=== PATIENT | female | born 1990 | race Caucasian/White ===

== ENCOUNTER 2021-02-06 10:37 | Emergency (ER) | payer OTHER ==
--- OUTSIDE RECORDS SUMMARY | 2021-02-06 10:41 | XMS REPORT | Continuity of Care Document ---
:1990 Author Organization [facility] t Address [address] [place] [address] Care Team Providers Name Role Phone Daniel RAMIREZ Attending Clinician Doctor Unassigned, Name Attending Clinician Unavailable DR GERALDO Attending Clinician Unavailable ORAEE Attending Clinician Unavailable ORAEE Attending Clinician Unavailable OLYA GARCIA Attending Clinician Unavailable ROB Attending Clinician Unavailable DR GERALDO Admitting Clinician Unavailable ORAEE Admitting Clinician Unavailable ORAEE Admitting Clinician Unavailable OLYA GARCIA Admitting Clinician Unavailable ROB Admitting Clinician Unavailable Problems Condition Condition Condition Status Onset Resolution Last Treating Co mments Source Name Details Category Date Date Treatment Clinician Date Abdominal Abdominal Problem Active 2019-[address] [facility] 0[facility]27 [facility] (LUF/LI V/SA) Sialoadeni Sialoadeni Problem Active [facility] tis tis 6-11 [facility] (LUF/LI V/SA) Problem [facility] (LUF/LI V/SA) Streptococ Streptococ Diagnosis Active 2018-[address] [facility] marlo sore marlo sore 1-04 [facility] - throat throat 00:00: Memoria 00 l (LUF/LI V/SA) Abdominal Abdominal Problem Active [facility] 7[facility]16 [facility] (LUF/LI V/SA) Anemia Anemia Problem [facility] (LUF/LI V/SA) Allergies, Adverse Reactions, Alerts This patient has no known allergies or adverse reactions. Social History Smoking Status Start Date Stop Date Source Never smoker [facility] (LUF/TAMELA/SA) Medications Ordered Filled Start Stop Current Ordering Indication Dosage Frequency Signature Comments Components Source Medication Medication Date Date Medication? Clinician (SIG) Name Name Ferrous Ferrous 2018-06 Yes Danilo [address] Gluconate Gluconate 08-13 Oraee with water [facility] - 00[facility]: or juice Memoria 00 between l meals Outpati ent Clinics CitraNatal CitraNatal Yes Danilo as [facility] DHA DHA 02-22 Oraee directed [facility] l Outpati ent Clinics acetaminoph acetaminoph Yes [address] en 300 MG / en 300 MG / L ukes - codeine codeine Memoria phosphate phosphate l 30 MG Oral 30 MG Oral (DOUGLAS F/LI Tablet Tablet V/SA) cyclobenzap cyclobenzap Yes 10mg 3xD [facility]ine [facility]ine [facility] (LUF/LI V/SA) prednisone prednisone Yes [facility] (LUF/LI V/SA) acetaminoph acetaminoph Yes [address] [facility] en 300 MG / en 300 MG / every 6 [facility] - codeine codeine hours as Memor ia phosphate phosphate needed. l 30 MG Oral 30 MG Oral (as?needed (LUF/LI Tablet Tablet ?for?pain) V/SA) cyclobenzap cyclobenzap Yes 10mg 3xD orally [address] [facility] rine rine times per [facility] - day as Memoria needed. l (for (LUF/LI muscle V/SA) spasms) prednisone prednisone Yes (day 1- [facility] tab, day [facility] - 2- 5 tab, Memoria day 3- 4 l tab, day (LUF/LI 4- 3 tab, V/SA) day 5- 2 tab, day 6- 1 tab) Immunizations Ordered Filled Immunization Date Status Comments [facility] e Immunization Name Name Influenza, Influenza, 2019-08-25 Completed [facility] - injectable, injectable, 23:31:00 [facility] quadrivalent, quadrivalent, (LUF/TAMELA /SA) preservative free preservative free TDAP > 7 TDAP > 7 2019-06-12 Completed [facility] Years-Adacel Years-Adacel 00:00:00 [facility] Outpatient Clinics up to date flu up to date flu 2019-01-02 Completed [facility] - 00:00:00 [facility] (LUF/TAMELA/SA) Vital Signs Vital Name Observation Time Observation Value Comments Source Body Temperature 2020-06-14 11:20:00 98 [degF] [facility] (LUF/TAMELA/SA) Pulse Rate 2020-06-14 11:20:00 78 /min [facility] (LUF/TAMELA/SA) Respiratory Rate 2020-06-14 11:20:00 18 /min [facility] (LUF/TAMELA/SA) O2% BldC Oximetry 2020-06-14 11:20:00 98 % [facility] (LUF/TAMELA/SA) BP Systolic 2020-06-14 11:20:00 105 mm[Hg] [facility] (LUF/TAMELA/SA) BP Diastolic 2020-06-14 11:20:00 94 mm[Hg] [facility] (LUF/TAMELA/SA) Height 2020-06-14 11:20:00 70 [in_i] [facility] (LUF/TAMELA/SA) Weight 2020-06-14 11:20:00 190 [lb_av] [facility] (LUF/TAMELA/SA) BMI (Body Mass Index) 2020-06-14 11:20:00 27.5 kg/m2 [facility] (LUF/TAMELA/SA) Body Temperature 2020-04-16 01:00:00 98.1 [degF] [facility] (LUF/TAMELA/SA) Pulse Rate 2020-04-16 01:00:00 74 /min [facility] (LUF/TAMELA/SA) Respiratory Rate 2020-04-16 01:00:00 16 /min [facility] (LUF/TAMELA/SA) O2% BldC Oximetry 2020-04-16 01:00:00 99 % [facility] (LUF/TAMELA/SA) BP Systolic 2020-04-16 01:00:00 125 mm[Hg] [facility] (LUF/TAMELA/SA) BP Diastolic 2020-04-16 01:00:00 84 mm[Hg] [facility] (LUF/TAMELA/SA) Height 2020-04-15 18:11:00 71 [in_i] [facility] (LUF/TAMELA/SA) Weight 2020-04-15 18:11:00 88 kg [facility] (LUF/TAMELA/SA) BMI (Body Mass Index) 2020-04-15 18:11:00 27.1 kg/m2 [facility] (LUF/TAMELA/SA) Body Temperature 2019-11-30 09:49:00 98 [degF] [facility] (LUF/TAMELA/SA) Pulse Rate 2019-11-30 09:49:00 78 /min [facility] (LUF/TAMELA/SA) Respiratory Rate 2019-11-30 09:49:00 18 /min [facility] (LUF/TAMELA/SA) O2% BldC Oximetry 2019-11-30 09:49:00 100 % [facility] (LUF/TAMELA/SA) BP Systolic 2019-11-30 09:49:00 160 mm[Hg] [facility] (LUF/TAMELA/SA) BP Diastolic 2019-11-30 09:49:00 96 mm[Hg] [facility] (LUF/TAMELA/SA) Height 2019-11-30 09:49:00 71 [in_i] [facility] (LUF/TAMELA/SA) Weight 2019-11-30 09:49:00 180 [lb_av] [facility] (LUF/TAMELA/SA) BMI (Body Mass Index) 2019-11-30 09:49:00 25.1 kg/m2 [facility] (LUF/TAMELA/SA) Body Temperature 2019-08-27 08:45:00 97.5 [degF] [facility] (LUF/TAMELA/SA) Pulse Rate 2019-08-27 08:45:00 81 /min [facility] (LUF/TAMELA/SA) Respiratory Rate 2019-08-27 08:45:00 18 /min [facility] (LUF/TAMELA/SA) O2% BldC Oximetry 2019-08-27 08:45:00 97 % [facility] (LUF/TAMELA/SA) BP Systolic 2019-08-27 08:45:00 119 mm[Hg] [facility] (LUF/TAMELA/SA) BP Diastolic 2019-08-27 08:45:00 74 mm[Hg] [facility] (LUF/TAMELA/SA) Height 2019-08-24 10:24:00 71 [in_i] [facility] (F/TAMELA/SA) Weight 2019-08-24 10:24:00 228 [lb_av] [facility] (LUF/TAMELA/SA) BMI (Body Mass Index) 2019-08-24 10:24:00 31.9 kg/m2 [facility] (F/TAMELA/SA) Procedures Procedure Date / Time Performed Performing Clinician [facility] e SECTION WITH 2019-08-25 12:39:00 [facility] BILATERAL TUBAL [facility] (Bilateral) (F/TAMELA/SA) EXTRACTION POC LOW OPEN 2019-08-25 00:00:00 [facility] (LUF/TAMELA/SA) OCCL BILAT FALLOP TUBES 2019-08-25 00:00:00 [facility] EL DEV OPEN [facility] (LUF/TAMELA/SA) section [facility] (F/TAMELA/SA) Encounters Start End Encounter Admission Attending Care Care Encounter Source Date/Time Date/Time Type Type Clinicians Facility Department ID 2021-02-05 2021-02-05 Emergency Sanchez, [facility] [id number] 04:06:00 07:29:00 Venkat Robert [id number] Joe [id number] [place] [id number] 2021-02-05 2021-02-05 Orders Doctor WYNN [id number] 00:00:00 00:00:00 Only UnassSIMÓN umanzor [id number] [facility] [id number] 2020-06-14 2020-06-14 SPRAIN 1 GERALDO, [facility] [id number] [facility] 10:58:00 13:00:00 LIGAMENTS KIRSTY [facility] [place] [facility] - LUMBAR SPN N, [address] BYPASS, (LUF/[place] [address] 2020-06-14 2020-06-14 Inpatient [facility] [id number] [facility] 00:00:00 [facility] [place] [id number] [facility] - N, [id number] [id number] l BYPASS, (LUF/[place] [address] 2020-06-14 2020-06-14 Inpatient [facility] [id number] 00:00:00 00:00:00 [facility] [place] [id number] [facility] - N, [id number] BYPASS, (LUF/[place] [address] 2020-05-24 2020-05-24 Outpatient STLMLC STLMLC [id number] [facility] 2020-04-15 2020-04-16 RIGHT E [facility] [id number] [facility] 17:48[facility]00 01[facility]22[facility]00 [facility] - QUADRANT N, [address] [place], (LUF/[place] [address] 2019-11-30 2019-11-30 SIALOADENI [facility] [id number] 09:37:00 10:35:00 TIS SHEY HAWLEY L ukes - UNSPECIFIE N, [address] BYPASS, (LUF/[place] [address] 2019-08-25 2019-08-27 MAT CARE O ARCADIO, [facility] [id number] 07:58:00 13:10:00 [facility] - SCAR PREV N, [address] [place], (LUF/[place] [address] 2019-08-25 2019-08-25 Inpatient [facility] [place] [id number] [facility] 14:31:00 23:59:00 [facility] [address] (LUF/[address], V/SA) [place] [address] 2019-08-25 2019-08-25 Outpatient [facility] [id number] 08:30:00 08:30:[address] [facility] IP l IP Outpati ent Clinics 2019-08-23 2019-08-23 Outpatient [facility] [id number] 13:00:00 13:00:00 Clinics [facility] oria n [facility] Clinics 2019-08-22 2019-08-22 Outpatient [facility] [id number] 14:30:00 14:30:00 Clinics [facility] oria n [facility] 2019-08-17 2019-08-17 Outpatient [facility] [id number] 13:10:00 13:10:00 Clinics [facility] oria n [facility] Clinics 2019-08-10 2019-08-10 Outpatient [facility] [id number] 13:00:00 13:00:00 Clinics [facility] oria n [facility] Clinics 2019-08-03 2019-08-03 Outpatient [facility] [id number] 15:10:00 15:10:00 Clinics [facility] oria n [facility] Clinics 2019-08-03 2019-08-03 Outpatient [facility] [id number] 13:51:00 13:51:00 Clinics Clinics [facility] Health I Health I l Outpati ent Clinics 2019-07-27 2019-07-27 Outpatient [facility] [id number] 13:00:00 13:00:00 Clinics [facility] oria n Multispec[facility] l [facility]pec [facility] Clinics 2019-07-10 2019-07-10 Outpatient [facility] [id number] 13:15:00 13:15:00 Clinics Clinics [facility] oria n Multispecia l Multispec [facility]ty Center [facility] Clinics 2019-07-05 2019-07-05 Outpatient [facility] [id number] 10:45:00 10:45:00 Clinics Clinics [facility] Health I l Outpati ent Clinics 2019-06-26 2019-06-26 Outpatient [facility] [id number] 13:20:00 13:20:00 Clinics [facility] oria n Multispecia l Multispec [facility]ty Center [facility] Clinics 2019-06-12 2019-06-12 Outpatient [facility] [id number] 13:00:00 13:00:00 Clinics Clinics [facility] oria n Mult[facility]pecia [facility] Clinics 2019-05-16 2019-05-16 Outpatient [facility] [id number] 13:00:00 13:00:00 Clinics Clinics [facility] oria n Mult[facility]pec[facility] l [facility] Clinics 2019-05-09 2019-05-09 Outpatient [facility] [id number] 10:08:00 10:08:00 Clinics Clinics [facility] I Health I l Outpati ent Clinics 2019-04-24 2019-04-24 Outpatient [facility] [id number] 14:21:00 14:21:00 Clinics Clinics [facility] oria n Multispecia l Multispec [facility]ty Center Out [facility] Clinics 2019-04-24 2019-04-24 Outpatient [facility] [id number] 10:34:00 10:34:00 Clinics Clinics [facility] Health I l Outpati ent Clinics 2019-04-18 2019-04-18 Outpatient [facility] [id number] 13:00:00 13:00:00 Clinics [facility] oria n Multispecia l Multispec lty Center Out [facility] Clinics 2019-03-21 2019-03-21 [facility] [id number] 13:30:00 13:30:00 Clinics [facility] oria n Multispecia l Multispec [facility]ty Center Out [facility] Clinics 2019-02-22 2019-02-22 Outpatient [facility] [id number] 11:13:00 11:13:00 Clinics [facility] Health I l Outpati ent Clinics 2019-02-21 2019-02-21 [facility] [id number] 13:30:00 13:30:00 Clinics [facility] oria n Multispecia l [facility]pec [facility]ty Center Out [facility] 2019-02-13 2019-02-13 [facility] [id number] 09:52:00 09:52:00 Clinics Clinics [facility] oria n Multispecia l Multispec [facility]ty Center Out [facility] Clinics 2019-02-07 2019-02-07 [facility] [id number] 13:30:00 13:30:00 Clinics [facility] oria n Multispecia l [facility]pec [facility]ty Center [facility] Clinics Results Test Description Test Time Test Comments Results Result Sourc e Comments CT T SPINE W/O 2020-06-14 CONTRAST 12:36:[address] [facility] [facility] (F/TAMELA/SA)Name: NIRAV DAMIEN WEIR : [id number] Sex: F Histo ry: TraumaComparison studies:NoneTechnique: Axial were obtained through the thoracic and lumbar regions.Coronal and sagittal images reconstructed from the axial data.Intravenous contrast: NoneFindings:Alignment : Normal thoracic kyphosis. Normal lumbar lordosis.. No scoliosis.Soft tissues: No abnormalities..Paraspi nal muscles: Well-preserved.Spinal cord: Cannot evaluate.Vertebrae:Bon es mildly demineralized but normal in height.No fractures, infection or neoplasm.Thoracic degenerative changes:Minimally degenerated discs in the midthoracic region.Patent spinal canal and foramina.Lumbar degenerative changes:None.Incidenta l bilateral tubal ligation clips in the pelvis.IMPRESSION:1. No acute thoracic or lumbar abnormalities.2. Specifically, no fractures or subluxations.3. Cannot adequately evaluate the spinal cord, ligament or the vessels on thesestudies.This final report was electronically signed by Dr Tommy Escobar MD06/14/2020 12:29 PMDictated By: CHRIS ESCOBARate: 06/14/2020 12:29 CT L SPINE W/O 2020-06-14 CONTRAST 12:36:09 [facility] (LUF/[facility]/SA)Name: DAMIEN PEREIRA : [id number] Sex: F Histo ry: TraumaComparison studies:NoneTechnique: Axial were obtained through the thoracic and lumbar regions.Coronal and sagittal images reconstructed from the axial data.Intravenous contrast: NoneFindings:Alignment : Normal thoracic kyphosis. Normal lumbar lordosis.. No scoliosis.Soft tissues: No abnormalities..Paraspi nal muscles: Well-preserved.Spinal cord: Cannot evaluate.Vertebrae:Bon es mildly demineralized but normal in height.No fractures, infection or neoplasm.Thoracic degenerative changes:Minimally degenerated discs in the midthoracic region.Patent spinal canal and foramina.Lumbar degenerative changes:None.Incidenta l bilateral tubal ligation clips in the pelvis.IMPRESSION:1. No acute thoracic or lumbar abnormalities.2. Specifically, no fractures or subluxations.3. Cannot adequately evaluate the spinal cord, ligament or the vessels on thesestudies.This final report was electronically signed by Dr Tommy Escobar MD06/14/2020 12:29 PMDictated By: BELLA ESCOBARRODate: 06/14/2020 12:29 CT ABDOMEN/PELVIS 2020-04-16 W/CONTRAST 00:50:57 [facility] ([facility]/)Name: DAMIEN PEREIRA : [id number] Sex: F EXAM: CT Abdomen and Pelvis WITH contrastINDICATION: [id number]: Abdominal painCOMPARISON: None.TECHNIQUE: Abdomen and pelvis were scanned utilizing a multidetector helicalscanner from the lung base to the pubic symphysis after administration of IVcontrast. Coronal and sagittal reformations were obtained. Routine protocol wasperformed.IV CONTRAST: 100 mL of Isovue 300ORAL CONTRAST: NoneCOMPLICATIONS: NoneFINDINGS:LINES and TUBES: None.LOWER THORAX: UnremarkableHEPATOBILI JEANETTE: No focal hepatic lesions. No biliary ductal dilation.GALLBLADDER: No radio-opaque stones or sludge. No wall thickening.SPLEEN: No splenomegaly.PANCREAS: No focal masses or ductal dilatation.ADRENALS: No adrenal nodulesKIDNEYS/URETERS : Kidneys enhance symmetrically. No hydronephrosis. No cystic orsolid mass lesions. No stones.GI TRACT: No abnormal distention, wall thickening, or evidence of bowelobstruction. The cecum is located in the midline lower abdomen. Appendix isnot clearly identified. There is however no fat stranding or adenopathy tosuggest appendicitis.PELVIC ORGANS/BLADDER: Tubal ligation clips.LYMPH NODES: No lymphadenopathy.VESSEL S: Unremarkable.PERITONEU M / RETROPERITONEUM: No free air or fluid.BONES: Unremarkable.SOFT TISSUES: Unremarkable.IMPRESSIO N:No acute abdominopelvic process.This final report was electronically signed by Dr Danay Ly 04/16/2020 12:44AMDictated By: DANAY LYDate: 04/16/2020 00:44 URINALYSIS WITH MICROSCOPIC 2020-04-16 00:22:00 Test Item Value Reference Range Interpretation Comme nts Color (test code = UCOLR) Yellow Clarity (test code = UCLAR) Clear Glucose (test code = UGLUC) NEGATIVE NEGATIVE N Bilirubin (test code = UBILI) NEGATIVE NEGATIVE N Ketones (test code = UKET) NEGATIVE NEGATIVE N Specific [place] (test code = USPGR) 1.020 1.005-1.030 A Blood (test code = UBLD) NEGATIVE NEGATIVE N PH (test code = UPH) 6.0 4.5-8.0 A Protein (test code = UPROT) NEGATIVE NEGATIVE N Urobilinogen (test code = U UROB) 0.2 >0.2 N Nitrite (test code = UNITR) NEGATIVE NEGATIVE N Leukocyte Esterase (test code = ULEUK) SMALL NEGATIVE A WBC (test code = WBCUR) 10-15 0-5 A RBC (test code = RBCUR) None Seen 0-5 A Epithial Cells (test code = U EPI) 3-5 0-10 A Mucous (test code = UMUC) Trace None Seen A Bacteria (test code = UBACT) 1+ None Seen,Trace A TEST, Urine [id number] 00:14:00 Test Item Value Reference Range Interpretation Comments (Urine) (test code = Negative PREGU) TEST, Serum [id number] 22:57:00 Test Item Value Reference Range Interpretation Comments (Serum) (test code = Negative Negative N PREGS) [id number] 21:25:00 Test Item Value Reference Range Interpretation Comments Glucose (test code 83 mg/dl 75-110 = GLU) BUN (test code = 12.0 mg/dl 6.0-17.0 BUN) Creatinine (test 0.9 mg/dl 0.4-1.2 code = CREA) Sodium (test code = 139 mmol/l 137-145 NA) Potassium (test 4.0 mmol/l 3.5-5.0 code = K) Chloride (test code 107 mmol/l 98-107 = CL) CO2 (test code = 28 mmol/l 22-30 CO2) Calcium (test code 8.4 mg/dl 8.4-10.2 = CALC) T Protein (test 7.4 gm/dl 5.1-8.7 code = TP) Albumin (test code 3.7 gm/dl 3.5-4.6 = ALB) A/G Ratio (test 1.0 % 1.1-2.2 L code = AGRAT) AST (SGOT) (test 5 U/L 11-36 L code = AST) ALT (SGPT) (test 15 U/L 11-40 code = ALT) Alkaline Phos (test 57 U/L 47-114 code = ALKP) Total Bilirubin 0.3 mg/dl 0.2-1.2 (test code = TBIL) Globulin (test code 3.7 gm/dl 2.3-3.5 H = GLOBU) Calcium, Corrected 8.6 mg/dl 8.4-10.2 Various f ormulas exist (test code = for corrected s gerald CALCCORR) calcium results , each yielding differ ent values. This corrected resul t was based on the fo rmula: Corrected Calci um = SerumCalcium + [0.8 * ( 4 - SerumAlbu min)] EGFR if >60 Bahamian (test code mL/min/1.73m\\ = EGFRAA) S\\2 EGFR if Non- >60 Estimate d Glomerular Bahamian (test code mL/min/1.73m\\ Filtrat ion Rate (eGFR) = EGFRNA) S\\2 Reference Inter vals Decision Points for 18 years and older and average body ma ss: >= 60 Does not exc lude kidney disease. 30 - 59 Suggests modera te chronic kidney disease and indicat es the need for furthe r investigation including asses sment of proteinuria and cardiovascular factors. < 30 Usually in dicates a need for refe rral for assessment and management of c hronic kidney failure. [id number] 21:25:00 Test Item Value Reference Range Interpretation Comments Lipase (test code = LIPA) 163 U/L 8-223 CBC WITH AUTO [id number] 21:04:00 Test Item Value Reference Range Interpretation Comments WBC (test code = 6.51 10\\S\\3/ul 4.80-10.80 WBC) RBC (test code = 5.04 10\\S\\6/ul 4.20-5.40 RBC) Hemoglobin (test 14.9 gm/dl 12.0-14.0 H code = HGB) Hematocrit (test 45.7 % 37.0-47.0 code = HCT) MCV (test code = 90.7 fL 81.0-99.0 MCV) MCH (test code = 29.6 pg 27.0-31.0 MCH) MCHC (test code = 32.6 gm/dl 33.0-37.0 L MCHC) RDW (test code = 12.7 % 11.5-14.5 RDWVC) Platelet (test code 305 10\\S\\3/ul 130-400 = PLT) MPV (test code = 9.7 fL 7.4-10.4 A "NOT MEASUR ED" MPV) RESULTS ARE DIS PLAYED WHEN THE INSTRU MENT HAS A SUPPRESSE D OR UNREPORTABLE RE SULT. THIS WILL MOST OFTEN HAPPEN WITH THE MPV WHEN THERE IS A N ABNORMAL PLATEL ET DISTRIBUTION DU E TO A CRITICAL LOW VA LUE OR PLATELET CLUMPI NG. THE RDW MAY BE SUPPRESSED IF T HERE ARE MULTIPLE PE AKS PRESENT ON THE RBC HISTOGRAM. IN THIS CASE, A MANUAL REVIEW OF THE SLIDE WI LL BE PERFORMED, AND RBC MORPHOLOGY WILL BE NOTED ON THE RE PORT. NE% (test code = 51.1 % 42.0-75.0 NE) LY% (test code = 36.6 % 13.0-42.0 LY) MO% (test code = 6.9 % 4.0-14.0 MO) EO% (test code = 4.3 % 1.0-5.0 EO) BA% (test code = 0.8 % 0.0-3.0 BA) IG% (test code = 0.3 % 0.0-0.4 IG%) HISTOLOGY [id number] 14:41:00 [address], [place] [address]Plsou: [phone] URIP #: [id number] Corrections Identification Technician: Sridhar Quinn M.D.Surgical Pathology Consultation ReportPatient Name: DAMIEN PEREIRA Case #: [id number] Med. Rec. #:[id number]: TAMELA-TAMELA Surgery Date: 08/28/2019 : 1990 (Age: 28) Received: 08/28/2019 Gender: F Copy to : Reported: 08/28/2019Physician(s): Lorna Vicente Specimen(s) ReceivedA: Placenta and cord Final Pathologic DiagnosisPlacenta and cord, products of conception:- mature placenta and cord. Electronically Signed Out tc/08/28/2019 Sridhar Quinn MD, Board Certified in Anatomic Pathology Clinical HistoryC-section, 39 weeks gestational age Gross DescriptionThe specimen is labeled placenta and cord. A 735 gram disc-shapedplacenta,measuring 21 x 20 x 3.4 cm is received. The centrally placedcordmeasures 5cm away from the margin of the placenta. The umbilical cord measures 21cm inlength, with a diameter up to 1.8 cm. There is a second separate segmentofcord which measures 23 cm in length, with a diameter up to 1.7 cm. Eachsegment of cord is normally coiled. Serially sectioning through eachsegmentreveals three vessels. The membranes have a reddish-blueappearance. Thematernal cotyledons are intact and serially sectioning reveals red,spongyplacental tissue. Section Code: Cassette A1 membranes and fetalportion of umbilical cord; cassette A2 placenta; cassette A3 placentaandmaternal portion of umbilical cord.tc/08/28/2019 Sridhar Quinn MD, Board Certified in Anatomic Pathology Microscopic DescriptionMicroscopic examination of the placenta reveals numerous third trimesterchorionic villi with syncytial knots. There are areas of intervillousfibrindeposition. No villitis is seen. The umbilical cord is composed of twoarteries and a vein and there is no inflammation present. The fetalmembranesare histologically unremarkable and show no evidence of inflammation. Billing Fee Code(s): A; [id number] WITH AUTO DIFF 2019-08-26 09:04:00 Test Item Value Reference Range Interpretation Comments WBC (test code = WBC) 16.64 10\\S\\3/ul 4.80-10.80 H RBC (test code = RBC) 2.83 10\\S\\6/ul 4.20-5.40 L Hemoglobin (test code 8.8 gm/dl 12.0-14.0 L = HGB) Hematocrit (test code 26.5 % 37.0-47.0 L = HCT) MCV (test code = MCV) 93.6 fL 81.0-99.0 MCH (test code = MCH) 31.1 pg 27.0-31.0 H MCHC (test code = 33.2 gm/dl 33.0-37.0 MCHC) RDW (test code = 13.2 % 11.5-14.5 RDWVC) Platelet (test code = 297 10\\S\\3/ul 130-400 PLT) MPV (test code = MPV) 10.2 fL 7.4-10.4 A NE% (test code = NE) 73.4 % 42.0-75.0 LY% (test code = LY) 12.3 % 13.0-42.0 L MO% (test code = MO) 10.2 % 4.0-14.0 EO% (test code = EO) 0.8 % 1.0-5.0 L BA% (test code = BA) 0.4 % 0.0-3.0 IG% (test code = IG%) 2.9 % 0.0-0.4 H Bands (test code = 2 % 0-2 No previo us value BANDM) was reported. A value of 2 was entered by [id number] on 08/26/2019 09:04 Neutrophils (test 78 10\\S\\3/ul 42-75 H No previou s value code = NEUTR) was reported. A value of 78 was entered by [id number] on 08/26/2019 09:04 Lymphocytes (test 11 % 13-42 L No previou s value code = LYMPH) was reported. A value of 11 was entered by [id number] on 08/26/2019 09:04 Monocytes (test code 9 % 4-14 No prev ious value = MONOS) was reported. A value of 9 was entered by [id number] on 08/26/2019 09:04 DRUG SCREEN [id number] 11:36:00 Test Item Value Reference Range Interpretation Comments PH (test code = 7.0 UPH) Specific [place] 1.015 (test code = USPGR) FT (test code = Negative AMPHET) (qualifier value) FT (test code = Negative ESTHELA) (qualifier value) FT (test code = Negative BENZO) (qualifier value) FT (test code = Negative YU) (qualifier value) FT (test code = Negative MTD) (qualifier value) FT (test code = Negative OPIAT) (qualifier value) FT (test code = Negative The followin g table PCP) (qualifier provides an value) interpretive gu [place] for the Drugs of Ab use ran on the Siemens Anderson analyzer listed there in: Ampheta mines < 1000 ng/ml = Negative Barbituates < 200 ng/ml = Negat mesha Benzodiazapines < 200 ngml = Negat mesha Cocaine < 300 ng/ml = Negat mesha Methadone < 300 ng/ml = Negat mesha Opiate < 300 ng/ml = Negat mesha PCP < 25 ng/ml = Nega tive THC < 50 ng/ml = Negat mesha Results equal t o or greater than th e above cut-off values = Presumptive Pos itive. Confirmation of Presumptive Pos itive results are alberto ilable upon request. FT (test code = Negative THC) (qualifier value) HIV 4th GENERATION, [id number] 16:25:00 Test Item Value Reference Range Interpretation Comments HIV 1, 2 (test code <0.05 0.00-0.89 N INTERPRE TATION OF RESULTS: = HIV) Non-Reactive = < 0.90 s/c Reactive = > 1.00 s/c (Confirmat ory tests suggested) Inte rmediate = > 0.90 s/c and <1.00 s/c (results are ba sed on duplicate testi ng) 1. Result is consi dered as Non-Reactive if both the initial and rep eat testing results are non -reactive. 2. Result is c onsidered as Reactive if one or both the initial and rep eat testing results are dereje ctive. (Con firmatory tests suggested ) SYPHILIS, [id number] 16:24:00 Test Item Value Reference Range Interpretation Comments SYPHILIS QUANTITATIVE 0.10 Sample s with an Index (test code = SYPH) Value < 0 .90 are considered nonr eactive for syphilis T. pallidum antibo dies. Samples with an Index Value > 0.90 an d < 1.10 are considered equivocal. Claus ples with an Index V alue > 1.10 are consid ered reactive for sy philis T. pallidum ant ibodies. URINALYSIS WITHOUT [id number] 15:32:00 Test Item Value Reference Range Interpretation Comments Color (test code = UCOLR) Yellow Clarity (test code = UCLAR) Hazy Glucose (test code = UGLUC) NEGATIVE NEGATIVE N Bilirubin (test code = UBILI) NEGATIVE NEGATIVE N Ketones (test code = UKET) NEGATIVE NEGATIVE N Specific [place] (test code = 1.015 1.005-1.030 A USPGR) Blood (test code = UBLD) Trace-Intact NEGATIVE A PH (test code = UPH) 6.5 4.5-8.0 A Protein (test code = UPROT) NEGATIVE NEGATIVE N Urobilinogen (test code = U 0.2 >0.2 N UROB) Nitrite (test code = UNITR) NEGATIVE NEGATIVE N Leukocyte Esterase (test code = Small NEGATIVE A ULEUK) TYPE & [id number] 15:21:00 Test Item Value Reference Range Interpretation Comments ABO Blood Type (test code = ABO) A Rh (test code = RH) Positive Positive N Antibody Screen (test code = ABSCR) Negative Negative N CROSSMATCH x 15:21:00 Test Item Value Reference Range Interpretation Comments Crossmatch (test code = Completed: Compatible XMATCH) CBC (HEMOGRAM ONLY)2019-08-24 14:05:00 Test Item Value Reference Range Interpretation Comments WBC (test code = 16.55 4.80-10.80 H WBC) 10\\S\\3/ul RBC (test code = 3.61 10\\S\\6/ul 4.20-5.40 L RBC) Hemoglobin (test 11.5 gm/dl 12.0-14.0 L code = HGB) Hematocrit (test 33.9 % 37.0-47.0 L code = HCT) MCV (test code = 93.9 fL 81.0-99.0 MCV) MCH (test code = 31.9 pg 27.0-31.0 H MCH) MCHC (test code = 33.9 gm/dl 33.0-37.0 MCHC) RDW (test code = 12.9 % 11.5-14.5 RDWVC) Platelet (test code 330 10\\S\\3/ul 130-400 = PLT) MPV (test code = 10.2 fL 7.4-10.4 A "NOT MEASUR ED" MPV) RESULTS ARE DIS PLAYED WHEN THE INSTRU MENT HAS A SUPPRESSE D OR UNREPORTABLE RE SULT. THIS WILL MOST OFTEN HAPPEN WITH THE MPV WHEN THERE IS A N ABNORMAL PLATEL ET DISTRIBUTION DU E TO A CRITICAL LOW VA LUE OR PLATELET CLUMPI NG. THE RDW MAY BE SUPPRESSED IF T HERE ARE MULTIPLE PE AKS PRESENT ON THE RBC HISTOGRAM. IN THIS CASE, A MANUAL REVIEW OF THE SLIDE WI LL BE PERFORMED, AND RBC MORPHOLOGY WILL BE NOTED ON THE RE PORT. US VEINS LEG UNIL [id number] 16:51:09Right lower extremity venous Doppler ultrasound:Ordering Physician: Danilo Vicente .Clinical Indication: Right lower extremity pain and edemaDuplex scanning, spectral analysis and real-time grayscale and color Dopplerimaging of the right lower extremity venous system was performed.The deep veins of theright lower extremity were compressible. Spontaneousphasic flow and augmentation was noted. The femoral vein was duplicated. Nointraluminal thrombus was visualized. The visualized greater saphenous veinappear patent. No popliteal cyst is identified.Impression: No evidence of DVT.This final report was electronically signed by Dr Neal Hernandez MD 08/22/20194:44 PMDictated By: NEAL HERNANDEZDate: 08/22/2019 16:44 CBC WITH AUTO [id number] 05:49:00 Test Item Value Reference Range Interpretation Comments WBC (test code = 16.90 4.80-10.80 H WBC) 10\\S\\3/ul RBC (test code = 3.86 10\\S\\6/ul 4.20-5.40 L RBC) Hemoglobin (test 12.4 gm/dl 12.0-14.0 code = HGB) Hematocrit (test 37.0 % 37.0-47.0 code = HCT) MCV (test code = 95.9 fL 81.0-99.0 MCV) MCH (test code = 32.1 pg 27.0-31.0 H MCH) MCHC (test code = 33.5 gm/dl 33.0-37.0 MCHC) RDW (test code = 12.6 % 11.5-14.5 RDWVC) Platelet (test code 190 10\\S\\3/ul 130-400 = PLT) MPV (test code = 9.9 fL 7.4-10.4 A "NOT MEASUR ED" MPV) RESULTS ARE DISPLAYED WHEN THE INSTRUMENT HAS A SUPPRESSED OR UNREPORTABLE RE SULT. THIS WILL MOST OFTEN HAPPEN WI TH THE MPV WHEN TH ERE IS AN ABNORMAL PLATELET DISTRIBUTION DU E TO A CRITICAL LOW VALUE OR PLATELET CLUMPING. THE RDW MAY BE SUPPRESS ED IF THERE ARE MULTI PLE PEAKS PRESENT O N THE RBC HISTOGRAM. IN THIS CASE, A JAMES DE DIOS REVIEW OF THE S LIDE WILL BE PERFORM ED, AND RBC MORPHOL OGY WILL BE NOTED O N THE REPORT. NE% (test code = NE) 79.3 % 42.0-75.0 H LY% (test code = LY) 8.9 % 13.0-42.0 L MO% (test code = MO) 9.9 % 4.0-14.0 EO% (test code = EO) 0.4 % 1.0-5.0 L BA% (test code = BA) 0.3 % 0.0-3.0 IG% (test code = 1.2 % 0.0-0.4 H IG%) Neutrophils (test 83 10\\S\\3/ul 42-75 H No previou s value code = NEUTR) was reported. A value of 83 was entered by [id number] on 04/25/2019 0 5:49 Lymphocytes (test 7 % 13-42 L No previou s value code = LYMPH) was reported. A value of 7 was entered by [id number] on 04/25/2019 0 5:49 Monocytes (test code 10 % 4-14 No prev ious value = MONOS) was reported. A value of 10 was entered by [id number] 225 on 04/25/2019 0 5:49 FLU [id number] 22:21:00 Test Item Value Reference Range Interpretation Comments Flu A Screen (test Negative Negative N EFFECTIVE 06/09/2013 - A code = FLUA) method change h as occurred. A mo lecular method for Flu testing will replace th e current method. Both F douglas A and Flu B will be t ested and results will co ntinue to be listed as "N egative or Positive". Whi le this method is more specific in the detectio n of both strains, confir matory testing is avai lable upon request. ldh Flu B Screen (test Negative Negative N EFFECTIVE 06/09/2013 - A code = FLUB) method change h as occurred. A mo lecular method for Flu testing will replace th e current method. Both F douglas A and Flu B will be t ested and results will co ntinue to be listed as "N egative or Positive". Whi le this method is more specific in the detectio n of both strains, confir matory testing is avai lable upon request. ldh STREP A [id number] 22:09:00 Test Item Value Reference Range Interpretation Comments Strep A Screen Positive Negative A TESTING IS PE RFORMED ON THE (test code = SAS) [employer] IA ANALYZER WHICH EMPLOYS IMMUNOF LUORESCENCE TECHNOLOGY TO D ETECT GROUP A STREPTOCOCCAL A NTIGENS FROM THROAT SWABS OF SYMPTOMATIC PATIENTS. ALL NEGATIVE RESULTS ARE CON FIRMED BY BACTERIAL CULTU RE BECAUSE NEGATIVE RESULT S DO NOT PRECLUDE GROUP A STREP INFECTION AND S HOULD NOT BE USED THE KWESI E BASIS FOR TREATMENT. THI S TEST IS INTENDED FOR MI OFESSIONAL AND LABORATORY USE AN AID IN THE DIAGNOSI S OF GROUP A STREPTOCOCCAL I NFECTION. [id number] 21:38:00 Test Item Value Reference Range Interpretation Comments Glucose (test code 84 mg/dl 75-110 = GLU) BUN (test code = 10.0 mg/dl 6.0-17.0 BUN) Creatinine (test 0.5 mg/dl 0.4-1.2 code = CREA) Sodium (test code = 137 mmol/l 137-145 NA) Potassium (test 4.0 mmol/l 3.5-5.0 code = K) Chloride (test code 107 mmol/l 98-107 = CL) CO2 (test code = 21 mmol/l 22-30 L CO2) Calcium (test code 9.0 mg/dl 8.4-10.2 = CALC) T Protein (test 6.9 gm/dl 5.1-8.7 code = TP) Albumin (test code 2.9 gm/dl 3.5-4.6 L = ALB) A/G Ratio (test 0.7 % 1.1-2.2 L code = AGRAT) AST (SGOT) (test 10 U/L 11-36 L code = AST) ALT (SGPT) (test 17 U/L 11-40 code = ALT) Alkaline Phos (test 68 U/L 47-114 code = ALKP) Total Bilirubin 0.4 mg/dl 0.2-1.2 (test code = TBIL) Globulin (test code 4.0 gm/dl 2.3-3.5 H = GLOBU) Calcium, Corrected 9.9 mg/dl 8.4-10.2 Various f ormulas exist (test code = for corrected s gerald CALCCORR) calcium results , each yielding differ ent values. This corrected resul t was based on the fo rmula: Corrected Calci um = SerumCalcium + [0.8 * ( 4 - SerumAlbu min)] EGFR if >60 Bahamian (test code mL/min/1.73m\\ = EGFRAA) S\\2 EGFR if Non- >60 Estimate d Glomerular Bahamian (test code mL/min/1.73m\\ Filtrat ion Rate (eGFR) = EGFRNA) S\\2 Reference Inter vals Decision Points for 18 years and older and average body ma ss: >= 60 Does not exc lude kidney disease. 30 - 59 Suggests modera te chronic kidney disease and indicat es the need for furthe r investigation including asses sment of proteinuria and cardiovascular factors. < 30 Usually in dicates a need for refe rral for assessment and management of c hronic kidney failure. US OB COMP > 14 WKS (TA)2019-04-07 14:36:52Obstetrical ultrasound after first trimester:History: Size and datesA single intrauterine is noted. The fetus was in breech presentation.Spontaneous movement and cardiac activity was observed during real-timeexamination. heart rate was recorded at 143 beats per minute. Amnioticfluid volume appeared within normal limits with an ELLA of 17.2 cm. The placentais anterior. The cervix was closed and measured 3.3 cm in length. The maternaladnexal structures were not visualized.The craniofacial structures, spine, four-chamber heart, stomach, kidneys,bladder and extremities as visualized appeared unremarkable. A three-vessel cordwas noted and the cord insertion was unremarkable. measurements are asfollows:BPD 4.3 cm[19 weeks one day]Head circumference 16.7 cm19 weeks 3 daysAbdominal circumference 13.6 cm19 weeks one dayFemur length 3.0 cm19 weeks one dayThe estimated weight is 277g plus or -42 g. Growth percentile is 46%. Thefetal measurements are within 2 standard deviations of the mean.Impression: Single intrauterine with an estimated gestational age of19 weeks one day and estimated date of delivery of 08/31/19 based on priormeasurements.This final report was electronically signed by Dr Neal Hernandez MD 04/07/20192:30 PMDictated By: NEAL HERNANDEZDate:04/07/2019 14:30US OB <14 W (TA)2019-02-08 15:49:09 Transabdominal and transvaginal ultrasound, first trimester:History: Early pregnancyAn early single intrauterine is noted. A pole and yolk sac wereboth visualized. Cardiac motion was observed during real-time examination withfetal heart rate of 146 beats per minute. The placenta and amniotic fluid areunable to be assessed due to early gestational age. There is no subchorionichemorrhage. The cervix was closed and measured 4.2 cm in length.The right ovary measured 2.6 x 1.5 x1.9 cm cm. The left ovary measured or 0.0 x2.4 x 1.7 cm cm. There is no free fluid noted in the cul-de-sac.Impression: Early single intrauterine with cardiac motion observed.Estimated gestational age based on crown-rump length is 10 weeks 6 days with anestimated date of delivery of 08/31/19.This final report was electronically signed by Dr Neal Hernandez MD 02/08/20193:42 PMDictated By: NEAL HERNANDEZDate: 02/08/2019 15:42US INTRAVAGINAL [id number] 00:03:13TECHNIQUE:Transvaginal and transabdominal ultrasound imaging of the pelvis was performed.Transvaginal images were medically indicated to better evaluate the fetus.Color Doppler evaluation was utilized to supplement the evaluation.HISTORY: Lower abdominal pain, last menstrual period November 25, 2018COMPARISON: None available.DISCUSSION:UTERUS:Cervix: 3.1 cmEndometrium:Intrauterine .Mean sac diameter: 0.97 white shoe ragger subtle yolk sac is visible.No pole or heart tone is visible.OVARIES/ADNEXA:The right ovary measures 2.2 x 1.9 x 1.4 cm.The left ovary measures 4 x 2.7 x 2.2 cm.PELVIS: Nofree fluid.IMPRESSION:Findings compatible with an early intrauterine , 5 weeks and 5 days byultrasound criteria, consistent with dates by last menstrual period. Advisefollowup obstetrical care and routine screening ultrasound(s).This final report was electronically signed by Dr Yash Vidales DO 01/02/201911:56 PMDictated By: Benjamín VIDALES: 01/02/2019 23:56BETA HCG II 2019-01-02 22:09:00 Test Item Value Reference Range Interpretation Comments CHRISTIANACAREG II (test 7098.0 mIU/L 0.0-4.8 H A NEW EXPANDED METHOD FOR code = BHCGII) [facility] WILL BE INTRODUCED ON JANUARY 28. THE DYNAMIC RANGE O F THE TEST HAS BEEN INCREA SED ALLOWING FOR FE WER DILUTUIONS, AND THE GESTATION WEEKS HAVE BEEN AGGREGATED TO A LLOW FOR EASE OF INTREPR ETATION. PLEASE REFER TO THE INTERPRETATION TABLE BELOW. Beta hC G levels in non- individuals = < 4.83 IU/L GESTAT IONAL AGE: 1-10 weeks 63.70 - 239634.00 IU/ L 11-15 weeks 22523. 00 - 830722.00 IU/L 16-22 weeks 9383. 80 - 42346.00 IU/L 23-40 weeks 1737. 20 - 44203.00 IU/L Detection of very Low Lev els of hCG does not exclud e . Repe at testing after 48 Hrs. i s recommended. TH IS ASSAY SHOULD NOT BE U SED TO DIAGNOSE ANY CO NDITION UNRELATED TO MI EGNANCY. [id number] 21:45:00 Test Item Value Reference Range Interpretation Comments Glucose (test code 84 mg/dl 75-110 = GLU) BUN (test code = 11.0 mg/dl 6.0-17.0 BUN) Creatinine (test 0.7 mg/dl 0.4-1.2 code = CREA) Sodium (test code = 135 mmol/l 137-145 L NA) Potassium (test 4.0 mmol/l 3.5-5.0 code = K) Chloride (test code 103 mmol/l 98-107 = CL) CO2 (test code = 25 mmol/l 22-30 CO2) Calcium (test code 8.7 mg/dl 8.4-10.2 = CALC) T Protein (test 7.1 gm/dl 5.1-8.7 code = TP) Albumin (test code 3.9 gm/dl 3.5-4.6 = ALB) A/G Ratio (test 1.2 % 1.1-2.2 code = AGRAT) AST (SGOT) (test 21 U/L 11-36 code = AST) ALT (SGPT) (test 26 U/L 11-40 code = ALT) Alkaline Phos (test 51 U/L 47-114 code = ALKP) Total Bilirubin 0.3 mg/dl 0.2-1.2 (test code = TBIL) Globulin (test code 3.2 gm/dl 2.3-3.5 = GLOBU) Calcium, Corrected 8.8 mg/dl 8.4-10.2 Various f ormulas exist (test code = for corrected s gerald CALCCORR) calcium results , each yielding differ ent values. This corrected resul t was based on the fo rmula: Corrected Calci um = SerumCalcium + [0.8 * ( 4 - SerumAlbu min)] EGFR if >60 Bahamian (test code mL/min/1.73m\\ = EGFRAA) S\\2 EGFR if Non- >60 Estimate d Glomerular Bahamian (test code mL/min/1.73m\\ Filtrat ion Rate (eGFR) = EGFRNA) S\\2 Reference Inter vals Decision Points for 18 years and older and average body ma ss: >= 60 Does not exc lude kidney disease. 30 - 59 Suggests modera te chronic kidney disease and indicat es the need for furthe r investigation including asses sment of proteinuria and cardiovascular factors. < 30 Usually in dicates a need for refe rral for assessment and management of c hronic kidney failure. CBC WITH AUTO [id number] 21:25:00 Test Item Value Reference Range Interpretation Comments WBC (test code = 9.95 10\\S\\3/ul 4.80-10.80 WBC) RBC (test code = 4.56 10\\S\\6/ul 4.20-5.40 RBC) Hemoglobin (test 14.5 gm/dl 12.0-14.0 H code = HGB) Hematocrit (test 42.9 % 37.0-47.0 code = HCT) MCV (test code = 94.1 fL 81.0-99.0 MCV) MCH (test code = 31.8 pg 27.0-31.0 H MCH) MCHC (test code = 33.8 gm/dl 33.0-37.0 MCHC) RDW (test code = 12.5 % 11.5-14.5 RDWVC) Platelet (test code 255 10\\S\\3/ul 130-400 = PLT) MPV (test code = 9.8 fL 7.4-10.4 A "NOT MEASUR ED" MPV) RESULTS ARE DIS PLAYED WHEN THE INSTRU MENT HAS A SUPPRESSE D OR UNREPORTABLE RE SULT. THIS WILL MOST OFTEN HAPPEN WITH THE MPV WHEN THERE IS A N ABNORMAL PLATEL ET DISTRIBUTION DU E TO A CRITICAL LOW VA LUE OR PLATELET CLUMPI NG. THE RDW MAY BE SUPPRESSED IF T HERE ARE MULTIPLE PE AKS PRESENT ON THE RBC HISTOGRAM. IN THIS CASE, A MANUAL REVIEW OF THE SLIDE WI LL BE PERFORMED, AND RBC MORPHOLOGY WILL BE NOTED ON THE RE PORT. NE% (test code = 64.4 % 42.0-75.0 NE) LY% (test code = 26.1 % 13.0-42.0 LY) MO% (test code = 6.4 % 4.0-14.0 MO) EO% (test code = 2.0 % 1.0-5.0 EO) BA% (test code = 0.6 % 0.0-3.0 BA) IG% (test code = 0.5 % 0.0-0.4 H IG%) URINALYSIS WITH [id number] 20:05:00 Test Item Value Reference Range Interpretation Comments Color (test code = UCOLR) YELLOW Clarity (test code = UCLAR) CLEAR Glucose (test code = UGLUC) NEGATIVE NEGATIVE N Bilirubin (test code = UBILI) NEGATIVE NEGATIVE N Ketones (test code = UKET) NEGATIVE NEGATIVE N Specific [place] (test code = USPGR) >=1.030 1.005-1.030 A Blood (test code = UBLD) NEGATIVE NEGATIVE N PH (test code = UPH) 6.0 4.5-8.0 A Protein (test code = UPROT) NEGATIVE NEGATIVE N Urobilinogen (test code = U UROB) 0.2 >0.2 N Nitrite (test code = UNITR) NEGATIVE NEGATIVE N Leukocyte Esterase (test code = NEGATIVE NEGATIVE N ULEUK) WBC (test code = WBCUR) 0-3 0-5 A RBC (test code = RBCUR) 0-2 0-5 A Epithial Cells (test code = U EPI) 30-40 0-10 A Mucous (test code = UMUC) Moderate None Seen A Bacteria (test code = UBACT) 1+ None Seen,Trace A TEST, Urine [id number] 20:02:00 Test Item Value Reference Range Interpretation Comments (Urine) (test code = Positive PREGU) If a specimen is collected by a nurse, then you MUST fill out the Collected and Collected By hart
[2021-02-06] MEDS ORDERED: FLUORESCEIN SODIUM 1 MG/WRAP ONE (12:55)
[2021-02-06] MEDS ORDERED: TETRACAINE HCL 0.5% 4ML OPTH ONE (12:55)
--- NOTE | 2021-02-06 13:00 | RAD REPORT ---
EXAM DESCRIPTION: RAD - Chest Pa And Lat (2 Views) - 02/06/2021 12:52 pm CLINICAL HISTORY: cough, right pleuritic pain Chest pain. COMPARISON: <Comparisons> FINDINGS: Mild reticular opacities are present bilaterally likely representing bronchitis/viral infe ction. The heart is normal in size. No displaced fractures.
--- NOTE | 2021-02-06 13:06 | ER ---
Nurse's Notes [facility] Arvind Name: Thania Gastelum Age: 30 yrs Sex: Female : 1990 Arrival Date: 02/06/2021 Time: 10:42 Bed Treatment Private MD: Diagnosis: Central corneal ulcer, right eye;Pneumonia, unspecified organism Presentation: 02/06 11:09 Chief complaint: Patient states: eyes swollen and CP. Coronavirus screen: Client denies da3 travel out of the [place] in the last 14 days. Ebola Screen: No symptoms or risks identified at this time. Risk Assessment: Do you want to hurt yourself or someone else? Patient reports no desire to harm self or others. 11:09 Method Of Arrival: Ambulatory da3 11:09 Acuity: SALLIE 4 da3 Triage Assessment: 11:12 General: Appears in no apparent distress. uncomfortable. da3 - Immunization history:: Client reports having NOT received the Covid vaccine. - Family history:: not pertinent. - Hospitalizations: : No recent hospitalization is reported. Vital Signs: 11:12 BP 138 / 83; Pulse 97; Resp 18; Temp 98.1(O); Pulse Ox 99% on R/A; da3 ED Course: 10:42 Patient arrived in ED. ds1 11:11 Triage completed. da3 11:18 Monty Langston MD is Attending Physician. rn 12:34 Ayesha Ludwig RN is Primary Nurse. ss 12:40 XRAY Chest Pa And Lat (2 Views) In Process Unspecified. EDMS 13:05 Natalya Beltre MD is Referral Physician. rn 13:30 No provider procedures requiring assistance completed. Patient did not have IV access ss during this emergency room visit. Administered Medications: 12:34 Drug: Fluorescein Strip 1 strip Route: Ophthalmic; Site: both eyes; ss 12:34 Drug: Tetracaine Drops 0.5 % 1 drops Route: Ophthalmic; Site: both eyes; ss Outcome: 13:06 Discharge ordered by . rn 13:30 Discharged to home ambulatory. ss 13:30 Condition: good 13:30 Discharge instructions given to patient, family, Instructed on discharge instructions, follow up and referral plans. medication usage, Demonstrated understanding of instructions, follow-up care, medications, Prescriptions given X 3. 13:30 Patient left the ED. ss Signatures: Dispatcher [employer] EDMS ShookOmari ds1 Monty Langston MD MD rn Ayesha Ludwig RN RN ss Sridhar Hicks RN RN da3
--- NOTE | 2021-02-06 13:07 | EDPHYS ---
Physician Documentation [facility] Name: Thania Gastelum Age: 30 yrs Sex: Female : 1990 Arrival Date: 02/06/2021 Time: 10:42 Bed Treatment Private MD: ED Physician Monty Langston HPI: 02/06 12:37 This 30 yrs old Female presents to ER via Ambulatory with complaints of Right rn eye pain, cough. 12:37 The patient is experiencing blurred vision, burning, foreign body sensation, pain, rn redness, tearing, The patient sustained None. to the right eye, caused by an unknown mechanism. Onset: The symptoms/episode began/occurred 2 day(s) ago. Duration: the symptoms are intermittent. Aggravated by nothing. Alleviated by nothing. Associated signs and symptoms: Pertinent positives: Cough and chest pain, Pertinent negatives: chills, fever. Severity of symptoms: At their worst the symptoms were mild in the emergency department the symptoms are unchanged. The patient has not experienced similar symptoms in the past. The patient has not recently seen a physician. Patient reports 2 days of right eye pain, denies injury, does not wear contacts. Woke up today with increased redness and drainage of right eye with foreign body sensation. Also reports has been having mild cough and congestion with chest pain upon coughing.. - Immunization history:: Client reports having NOT received the Covid vaccine. - Family history:: not pertinent. - Hospitalizations: : No recent hospitalization is reported. ROS: 12:39 Constitutional: Negative for fever, chills, and weight loss, Eyes: Positive for pain rn redness and discharge right eye ENT: Positive for congestion Neck: Negative for injury, pain, and swelling, Cardiovascular: Negative for palpitations, and edema positive for chest pain Respiratory: Negative for wheezing, positive for cough Abdomen/GI: Negative for abdominal pain, nausea, vomiting, diarrhea, and constipation, Back: Negative for injury and pain, : Negative for injury, bleeding, discharge, and swelling, MS/Extremity: Negative for injury and deformity, Skin: Negative for injury, rash, and discoloration, Neuro: Negative for headache, weakness, numbness, tingling, and seizure. Exam: 12:39 Constitutional: This is a well developed, well nourished patient who is awake, alert, rn and in no acute distress. Head/Face: Normocephalic, atraumatic. Eyes: Pupils equal round and reactive to light, extra-ocular motions intact. Lids and lashes normal. Scleral injection right eye with clear drainage, ulceration located 6 o'clock position of right cornea. No foreign body identified. Linear extensions branch inferiorly from ulceration. No classic dendritic lesions noted. ENT: Clear nasal drainage. No stridor. Cardiovascular: Regular rate and rhythm. No pulse deficits. Respiratory: No increased work of breathing, no retractions or nasal flaring. Skin: Warm, dry, no rashes MS/ Extremity: Pulses equal, no cyanosis. Neuro: Awake and alert, GCS 15 Vital Signs: 11:12 BP 138 / 83; Pulse 97; Resp 18; Temp 98.1(O); Pulse Ox 99% on R/A; da3 MDM: 12:20 Patient medically screened. rn 13:04 Differential diagnosis: Corneal abrasion of Corneal ulcer of Data reviewed: vital rn signs, nurses notes, radiologic studies, plain films, and as a result, I will discharge patient. Counseling: I had a detailed discussion with the patient and/or guardian regarding: the historical points, exam findings, and any diagnostic results supporting the discharge/admit diagnosis, radiology results, the need for outpatient follow up, to return to the emergency department if symptoms worsen or persist or if there are any questions or concerns that arise at home. Response to treatment: the patient's symptoms have mildly improved after treatment, and as a result, I will discharge patient. Special discussion: I discussed with the patient/guardian in detail that at this point there is no indication for admission to the hospital. It is understood, however, that if the symptoms persist or worsen the patient needs to return immediately for re-evaluation. 13:04 Test interpretation: by ED physician or midlevel provider: plain radiologic studies, rn Bilateral interstitial prominence consistent with pulmonary infection possibly viral or bronchitis. 02/06 11:18 Order name: XRAY Chest Pa And Lat (2 Views); Complete Time: 13:03 rn 02/06 11:18 Order name: Eye Tray; Complete Time: 12:34 rn Administered Medications: 12:34 Drug: Fluorescein Strip 1 strip Route: Ophthalmic; Site: both eyes; ss 12:34 Drug: Tetracaine Drops 0.5 % 1 drops Route: Ophthalmic; Site: both eyes; ss Disposition Summary: 02/06/21 13:06 Discharge Ordered Location: Home rn Problem: new rn Symptoms: have improved rn Condition: Stable rn Diagnosis - Central corneal ulcer, right eye rn - Pneumonia, unspecified organism rn Followup: rn - With: Natalya Beltre MD - When: 2 - 3 days - Reason: Recheck today's complaints, Re-evaluation by your physician Discharge Instructions: - Discharge Summary Sheet rn - Corneal Ulcer rn - Community-Acquired Pneumonia, Adult rn Forms: - Medication Reconciliation Form rn - Thank You Letter 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 Day 2, 3, 4 , 5 take one (1) tablet once daily.; 6 tablet; Refills: 0, Product Selection Permitted - Acyclovir 800 mg Oral Tablet - take 1 tablet by ORAL route 5 times per day for 10 days; 50 tablet; Refills: 0, rn Product Selection Permitted Signatures: Dispatcher [employer] EDMS Monty Langston MD MD rn Smirch, Shelby, RN RN ss Allan, David RN RN da3 Corrections: (The following items were deleted from the chart) 13:05 12:39 Constitutional: This is a well developed, well nourished patient who is awake, rn alert, and in no acute distress. Head/Face: Normocephalic, atraumatic. Eyes: Pupils equal round and reactive to light, extra-ocular motions intact. Lids and lashes normal. Scleral injection right eye with clear drainage, ulceration located 6 o'clock position of right cornea. No foreign body identified. ENT: Clear nasal drainage. No stridor. Cardiovascular: Regular rate and rhythm. No pulse deficits. Respiratory: No increased work of breathing, no retractions or nasal flaring. Skin: Warm, dry, no rashes MS/ Extremity: Pulses equal, no cyanosis. Neuro: Awake and alert, GCS 15 rn
[2021-02-06 13:34] VITALS: BP 138/83; TEMP 98.1; O2SAT 99
== END 2021-02-06 13:30 | disposition home or self-care (01) ==
LOC: ER 10:37
DX: H16.011 Central corneal ulcer, right eye (principal); J18.9 Pneumonia, unspecified organism
CPT/HCPCS: 71046; 99283

== ENCOUNTER 2021-02-19 10:44 | Emergency (ER) | payer OTHER, SELFPAY ==
--- OUTSIDE RECORDS SUMMARY | 2021-02-19 10:48 | XMS REPORT | Continuity of Care Document ---
:1990 Author Organization [facility] t Address [address] [place] [address] Care Team Providers Name Role Phone Wall Primary Care Physician Sly Hidalgo DO Attending Clinician Daniel RAMIREZ Attending Clinician Doctor Unassigned, Name Attending Clinician Unavailable DR GERALDO Attending Clinician Unavailable ORAEE Attending Clinician Unavailable ORAEE Attending Clinician Unavailable OLYA GARCIA Attending Clinician Unavailable ROB Attending Clinician Unavailable DR GERALDO Admitting Clinician Unavailable ORAEE Admitting Clinician Unavailable ORAEE Admitting Clinician Unavailable OLYA GARCIA Admitting Clinician Unavailable ROB Admitting Clinician Unavailable Payers Payer Name Policy Type Policy Effective Date Expiration Date Sour ce Number [facility] [id number] 2021 [facility] - 00:00:00 [place] [facility] [place] CHILDRENS [id number] /06/2020-PresentM edicaid Problems Condition Condition Condition Status Onset Resolution Last Treating Co mments Source Name Details Category Date Date Treatment Clinician Date Abdominal Abdominal Problem Active 2019-[address] [facility]27 [facility] (LUF/LI V/SA) Sialoadeni Sialoadeni Problem Active [facility] tis 6-11 [facility] (LUF/LI V/SA) Problem Active 2020-0 [facility] section 3[facility]/SA) No known No known Disease Unive rs active active ity of problems problems [facility] Allergies, Adverse Reactions, Alerts This patient has no known allergies or adverse reactions. Social History Social Habit Start Date Stop Date Quantity Comments Source Exposure to Not sure [facility] SARS-CoV-2 (event[facility] Sex Assigned At [birth year] [facility] 00:00:00 00:00:00 [facility] Smoking Status Start Date Stop Date Source Never sm[facility] (LUF/TAMELA/SA) Unknown if ever smoked [facility] Medications Ordered Filled Start Stop Current Ordering Indication Dosage Frequency Signature Comments Components Source Medication Medication Date Date Medication? Clinician (SIG) Name Name ketorolac 2020- No 30mg 30 mg, Unive rs (TORADOL) 02-17 08-30 Slow IV ity of injection 17:15: 17:34 Push, [place] 30 mg 00 :00 ONCE, 1 Medical dose, [facility] Branch 02/17/21 at 1215, PAULINE
Fa culty member approving Restricted medication : CORRIE HIDALGO loratadine Yes [id number] 10mg Take 1 [facility] 10 mg 8-18 9102 tablet by ity of tablet 00:00: mouth 00 daily. Medical Branch montelukast Yes [id number] 10mg Take 1 [facility] 10 mg 8-18 9102 tablet by ity of tablet 00:00: mouth [place] 00 every 24 Medical ([facility] ur) hours as needed (symptoms) . methylPREDN 2020- Yes [id number] Take by Univers ISolone 4 8-18 9102 mouth ity of mg tablets 00:00: SEE-INSTRU T [place] 00 CTIONS. Medical follow Branch package directions artificial Yes [id number] 2[drp] Place 2 Univers tears,hypro 8 9102 Drops in ity of [place], 00:00: [place] eyes [place] 0.5 % 00 every 6 Medical ophthalmic (six) Branch drops hours as needed for Dry eyes. Ferrous Ferrous 2018-06 Yes Danilo [address] Gluconate Gluconate 2 Oraee with water [facility] - 00:00: or juice Memoria 00 between l meals Outpati ent Clinics CitraNatal CitraNatal Yes Danilo as [facility] DHA DHA 9- Oraee directed [facility] amoxicillin Yes 500mg Take 1 Uni vers 500 mg 1-06 tablet by ity of tablet 00:00: mouth 2 [place] 00 (two) Medical times Branch daily. traMADOL Yes 50mg Take 1 Univers (ULTRAM) 50 7-20 tablet by ity of mg tablet 00:00: mouth [place] 00 every 6 Medical (six) Branch hours as needed for Pain (scale 7-10). pentazocine Yes 1{tbl} Take 1 Un ahsan -naloxone 7-08 tablet by ity o f (MARIE NX) 00:00: mouth [place] 50-0.5 mg 00 every 4 Medical tablet (four) Branch hours as needed for Pain for up to 20 doses. acetaminoph acetaminoph Yes 1 4xD C HI [...] Immunizations Ordered Filled Immunization Date Status Comments [facility] e Immunization Name Name Influenza, Influenza, 2019-08-25 Completed [facility] - injectable, injectable, 23:31:00 [facility] quadrivalent, quadrivalent, (LUF/TAMELA /SA) preservative free preservative free TDAP > 7 TDAP > 7 2019-06-12 Completed [facility] Years-Adacel Years-Adacel 00:00:00 [facility] Outpatient Clinics up to date flu up to date flu 2019-01-02 Completed [facility] - 00:00:00 [facility] (LUF/TAMELA/SA) Vital Signs Vital Name Observation Time Observation Value Comments Source Systolic blood 2021-02-17 15:51:00 140 mm[Hg] [facility] Diastolic blood 2021-02-17 15:51:00 83 mm[Hg] [facility] Heart rate 2021-02-17 15:51:00 96 /min [facility] Body temperature 2021-02-17 15:51:00 37.06 Jammie [facility] Respiratory rate 2021-02-17 15:51:00 14 /min [facility] Body height 2021-02-17 15:51:00 180.3 cm [facility] Body weight 2021-02-17 15:51:00 81.647 kg [facility] BMI 2021-02-17 15:51:00 25.10 kg/m2 [facility] Oxygen saturation in 2021-02-17 15:51:00 100 /min [facility] Arterial blood by [facility] Pulse oximetry [place] Body Temperature 2020-06-14 11:20:00 98 [degF] [facility] (LUF/TAMELA/SA) Pulse Rate 2020-06-14 11:20:00 78 /min [facility][1] (LUF/TAMELA/SA) Respiratory Rate 2020-06-14 11:20:00 18 /min [facility] (LUF/TAMELA/SA) O2% BldC Oximetry 2020-06-14 11:20:00 98 % [facility] (LUF/TAMELA/SA) BP Systolic 2020-06-14 11:20:00 105 mm[Hg] [facility] (LUF/TAMELA/SA) BP Diastolic 2020-06-14 11:20:00 94 mm[Hg] [facility] (LUF/TAMELA/SA) Height 2020-06-14 11:20:00 70 [in_i] [facility] (LUF/TAMELA/SA) Weight 2020-06-14 11:20:00 190 [lb_av] [facility] (LUF/TAMELA/SA) BMI (Body Mass 2020-06-14 11:20:00 27.5 kg/m2 [facility] (LUF/TAMELA/SA) Body Temperature 2020-04-16 01:00:00 98.1 [degF] [facility] (LUF/TAMELA/SA) Pulse Rate 2020-04-16 01:00:00 74 /min [facility] (LUF/TAMELA/SA) Respiratory Rate 2020-04-16 01:00:00 16 /min [facility] (LUF/TAMELA/SA) O2% BldC Oximetry 2020-04-16 01:00:00 99 % [facility] (LUF/TAMELA/SA) BP Systolic 2020-04-16 01:00:00 125 mm[Hg] [facility] (LUF/TAMELA/SA) BP Diastolic 2020-04-16 01:00:00 84 mm[Hg] [facility] (LUF/TAMELA/SA) Height 2020-04-15 18:11:00 71 [in_i] [facility][1] (LUF/TAMELA/SA) Weight 2020-04-15 18:11:00 88 kg [facility] (LUF/TAMELA/SA) BMI (Body Mass 2020-04-15 18:11:00 27.1 kg/m2 [facility]) [facility] (LUF/TAMELA/SA) Body Temperature 2019-11-30 09:49:00 98 [degF] [facility] (LUF/TAMELA/SA) Pulse Rate 2019-11-30 09:49:00 78 /min [facility] (LUF/TAMELA/SA) Respiratory Rate 2019-11-30 09:49:00 18 /min [facility] (LUF/TAMELA/SA) O2% BldC Oximetry 2019-11-30 09:49:00 100 % [facility] (LUF/TAMELA/SA) BP Systolic 2019-11-30 09:49:00 160 mm[Hg] [facility] (LUF/TAMELA/SA) BP Diastolic 2019-11-30 09:49:00 96 mm[Hg] [facility] (LUF/TAMELA/SA) Height 2019-11-30 09:49:00 71 [in_i] [facility] (LUF/TAMELA/SA) Weight 2019-11-30 09:49:00 180 [lb_av] [facility] (LUF/TAMELA/SA) BMI (Body Mass 2019-11-30 09:49:00 25.1 kg/m2 [facility]) [facility] (LUF/TAMELA/SA) Body Temperature 2019-08-27 08:45:00 97.5 [degF] [facility] (LUF/TAMELA/SA) Pulse Rate 2019-08-27 08:45:00 81 /min [facility] (LUF/TAMELA/SA) Respiratory Rate 2019-08-27 08:45:00 18 /min [facility] (LUF/TAMELA/SA) O2% BldC Oximetry 2019-08-27 08:45:00 97 % [facility] (LUF/TAMELA/SA) BP Systolic 2019-08-27 08:45:00 119 mm[Hg] [facility] (LUF/TAMELA/SA) BP Diastolic 2019-08-27 08:45:00 74 mm[Hg] [facility] (LUF/TAMELA/SA) Height 2019-08-24 10:24:00 71 [in_i] [facility] (LUF/TAMELA/SA) Weight 2019-08-24 10:24:00 228 [lb_av] [facility] (LUF/TAMELA/SA) BMI (Body Mass 2019-08-24 10:24:00 31.9 kg/m2 KSENIA Souza - Index) [facility] (LUF/TAMELA/SA) Procedures Procedure Date / Time Performed Performing Clinician Sourc e XR CHEST 1 VW 2021-02-17 16:16:22 Corrie Hidalgo [facility] D-DIMER 2021-02-17 16:09:00 Corrie Hidalgo [facility] TROPONIN I 2021-02-17 16:08:00 Corrie Hidalgo [facility] HEPATIC FUNCTION PANEL 2021-02-17 16:08:00 [id number] (ALB,T.PRO,BILI T,BU/BC,ALT,AST,ALK PHOS) BASIC METABOLIC PANEL 2021-02-17 16:08:00 [facility]idalgo [facility] (NA, K, CL, CO2, Medical Branch GLUCOSE, BUN, CREATININE, CA) CBC WITH DIFF 2021-02-17 16:08:00 Corrie Hidalgo [facility] COVID-19 (ID NOW RAPID 2021-02-17 16:08:00 Corrie Hidalgo Un [facility] TESTING) Medical Branch LIPASE 2021-02-17 16:08:00 Corrie Hidalgo [facility] CONSENT/REFUSAL FOR 2021-02-17 15:25:37 Doctor Unassigned, No [facility] DIAGNOSIS AND Name Medical Branch TREATMENT SECTION WITH 2019-08-25 12:39:00 KSENIA Souza - BILATERAL [facility] (LUF/LI V/SA) (Bilateral) EXTRACTION POC LOW 2019-08-25 00:00:00 KSENIA Addison kes - OPEN [facility] (LUF/LI V/SA) OCCL BILAT FALLOP 2019-08-25 00:00:00 KSENIA Addisonk es - TUBES EL DEV OPEN [facility] (LUF/ TAMELA/SA) section [facility] (LUF/LI V/SA) Encounters Start End Encounter Admission Attending Care Care Encounter Source Date/Time Date/Time Type Type Clinicians Facility Department ID 2021-02-17 2021-02-17 Emergency Colt, [facility] [id number] [facility] 10:55:00 13:50:00 Corrie Robert [id number] ity [facility] [id number] [facility] [id number] [facility] 084 Branch 2021-02-05 2021-02-05 Emergency Sanchez, [facility] [id number] 04:06:00 07:29:00 Venkat Robert [id number] [place] [id number] Benedict [id number] 2021-02-05 2021-02-05 Orders Doctor TIANNA [id number] 00:00:00 00:00:00 Only Unassigned, SIMÓN [id number] [place] [facility] [id number] 2020-06-14 2020-06-14 SPRAIN 1 GERALDO, [facility] [id number] [facility] 10:58:00 13:00:00 LIGAMENTS KIRSTY [facility] - LUMBAR SPN N, [address] BYPASS, (LUF/[place] [address] 2020-06-14 2020-06-14 Inpatient [facility] [id number] [facility] 00:00:00 00:00:00 [facility] [id number] [place] - N, [id number] [id number] l BYPASS, (LUF/[place] [address] 2020-06-14 2020-06-14 Inpatient [facility] [id number] [facility] St 00:00:00 00:00:00 [facility] [id number] [place] - N, [id number] BYPASS, (LUF/[place] [address] 2020-05-24 2020-05-24 Outpatient STLMLC [facility]MLC [id number] [facility] l Outpati ent Clinics 2020-04-15 2020-04-16 RIGHT E [facility] [id number] [facility] 17:48:00 01:22:00 LOWER DANIELHomer SANCHEZHAWLEY L ukes - QUADRANT N, [address] BY[address], ([place] [address] 2019-11-30 2019-11-30 SIALOADENI [facility] [id number] 09:37:00 10:35:00 TIS DANIELHomer SANCHEZHAWLEY L ukes - UNSPECIFIE N, [address] BYPASS, (LUF/[place] [address] 2019-08-25 2019-08-27 MAT CARE O ARCADIO, [facility] [id number] 07:58:00 13:10:00 LW TRANS [facility] - SCAR PREV N, [address] BYPASS, (LUF/[place] [address] 2019-08-25 2019-08-25 Inpatient CEMP ARCADIO, [facility] [id number] 14:31:00 23:59:00 [facility] [address] (LUF/LI [address], V/[place]) [place] [address] 2019-08-25 2019-08-25 Outpatient [facility] [id number] 08:30:00 08:30:[address] [facility] IP l IP Outpati ent Clinics 2019-08-23 2019-08-23 Outpatient [facility] [id number] 13:00:00 13:00:00 Clinics [facility] Mem oria n [facility] Clinics 2019-08-22 2019-08-22 Outpatient [facility] [id number] 14:30:00 14:30:[address] [facility] oria n [facility] Out [facility] Clinics 2019-08-17 2019-08-17 Outpatient [facility] [id number] 13:10:00 13:10:00 Clinics [facility] oria n [facility] Out [facility]ty ent Center Clinics 2019-08-10 2019-08-10 Outpatient [facility] [id number] 13:00:00 13:00:00 Clinics [facility] oria n [facility] Out [facility] Center Clinics 2019-08-03 2019-08-03 Outpatient [facility] [id number] 15:10:00 15:10:00 Clinics [facility] oria n [facility] Out [facility] ent Center Clinics 2019-08-03 2019-08-03 Outpatient [facility] [id number] 13:51:00 13:51:00 Clinics Clinics [facility] I Health I l Outpati ent Clinics 2019-07-27 2019-07-27 Outpatient [facility] [id number] 13:00:00 13:00:00 Clinics [facility] oria n [facility] Out [facility] Center Clinics 2019-07-10 2019-07-10 Outpatient [facility] [id number] 13:15:00 13:15:[address] [facility] oria n [facility] Out [facility] ent Center Clinics 2019-07-05 2019-07-05 Outpatient [facility] [id number] 10:45:00 10:45:00 Clinics Clinics [facility] Health I Health I l Outpati ent Clinics 2019-06-26 2019-06-26 Outpatient [facility] [id number] 13:20:00 13:20:00 Clinics [facility] oria n [facility] Out [facility] ent Center Clinics 2019-06-12 2019-06-12 Outpatient [facility] [id number] 13:00:00 13:00:[address] [facility] oria n Mult[facility] Out [facility] ent Center Clinics 2019-05-16 2019-05-16 Outpatient [facility] [id number] 13:00:00 13:00:[address] [facility] oria n [facility] Out [facility] Center Clinics 2019-05-09 2019-05-09 Outpatient [facility] [id number] 10:08:00 10:08:00 Clinics Clinics [facility] I Health I l Outpati ent Clinics 2019-04-24 2019-04-24 Outpatient [facility] [id number] 14:21:00 14:21:[address] [facility] oria n [facility] Out [facility] Center Clinics 2019-04-24 2019-04-24 Outpatient [facility] [id number] 10:34:00 10:34:00 Clinics Clinics [facility] Health I l Outpati ent Clinics 2019-04-18 2019-04-18 Outpatient [facility] [id number] 13:00:00 13:00:[address] [facility] oria n Mult[facility]ia [facility] Out [facility]ty ent Center Clinics 2019-03-21 2019-03-21 Outpatient [facility] [id number] 13:30:00 13:30:[address] [facility] oria n Mult[facility]pecia [facility] Out [facility] ent Center Clinics 2019-02-22 2019-02-22 Outpatient [facility] [id number] 11:13:00 11:13:00 Clinics Clinics [facility] Health I Health I l Outpati ent Clinics 2019-02-21 2019-02-21 Outpatient [facility] [id number] 13:30:00 13:30:[address] [facility] oria n [facility] Out wilman ialty ent Center Clinics 2019-02-13 2019-02-13 Outpatient [facility] [id number] 09:52:00 09:52:00 Clinics [facility] oria n [facility]ia [facility] Out [facility] 2019-02-07 2019-02-07 [facility] [id number] 13:30:00 13:30:00 [facility] n Multispecia l Multispec lty Center Out [facility] Clinics Results Test Description Test Time Test Comments Results Result Comments Source D-DIMER 2021-02-17 16:55:37 Test Item Value Reference Range Interpretation Comme nts D-DIMER (test code = <0.27 See_Comment [Autom ated message] The system [id number]) which generated this result transmitted ref erence range: <0.41 ?g/mL (FE U). The reference range was not u sed to interpret this result as normal/abnormal. BILL (test code = BILL) Lab Interpretation (test code = Normal 01511-5) [facility] [id number] 16:52:59 Test Item Value Reference Range Interpretation Comments TROPONIN I (test code = 0.001 ng/mL See_Comment [Au tomated 6518561776) message] The sy stem which generated this result transmitted reference range : <=0.034. The reference range was not used to interpret this result as normal/abnormal . BILL (test code = BILL) Lab Interpretation Normal (test code = 56459-2) [facility] (ID NOW RAPID TESTING)2021-02-17 16:43:22 Test Item Value Reference Range Interpretation Comments SARS-CoV-2 Rapid ID NOW (test Not Detected Not Detected code = 93553-0) BILL (test code = BILL) Lab Interpretation (test code = Normal 49628-8) [facility]OL[facility] (NA, K, CL, CO2, GLUCOSE, BUN, CREATININE, CA)2021-02-17 16:42:41 Test Item Value Reference Range Interpretation Comments NA (test code = 9771139213) 139 mmol/L 135-145 K (test code = 4460342251) 3.8 mmol/L 3.5-5.0 CL (test code = 4722027810) 107 mmol/L 98-108 CO2 TOTAL (test code = 0816967018) 24 mmol/L 23-31 AGAP (test code = 4101802418) 2-16 BUN (test code = 7917111256) 13 mg/dL 7-23 GLUCOSE (test code = 1007313814) 92 mg/dL 70-110 CREATININE (test code = 0.67 mg/dL 0.50-1.04 1500823084) CALCIUM (test code = 6366430642) 8.8 mg/dL 8.6-10.6 eGFR (test code = 9217247102) mL/min/1.73m2 BILL (test code = BILL) [facility] (43305) (ALB,T.PRO,BILI T,BU/BC,ALT,AST,ALK PHOS)2021-02-17 16:42:41 Test Item Value Reference Range Interpretation Comments TOTAL BILI (test code = 6010035244) 0.5 mg/dL 0.1-1.1 BILI UNCON (test code = 0179284363) 0.3 mg/dL 0.1-1.1 BILI CONJ (test code = 8317872667) 0.0 mg/dL 0.0-0.3 T PROTEIN (test code = 8524043750) 7.6 g/dL 6.3-8.2 ALBUMIN (test code = 1644619403) 4.6 g/dL 3.5-5.0 ALK PHOS (test code = 1487917388) 49 U/L 34-122 ALTv (test code = 1742-6) 14 U/L 5-35 AST(SGOT) (test code = 7088625049) 18 U/L 13-40 Lab Interpretation (test code = Normal 45698-5) [facility]2021-08-30 16:42:41 Test Item Value Reference Range Interpretation Comments LIPASE (test code = 9156040791) 94 U/L 0-220 Lab Interpretation (test code = Normal 13303-7) [facility] WITH [id number] 16:26:20 Test Item Value Reference Range Interpretation Comments WBC (test code = See_Comment [Automated message] 6690-2) The system edulio generated this result transmitted ref erence range: 4.30 - 1 1.10 10*3/?L. The re ference range was not u sed to interpret this result as normal/abnor mal. RBC (test code = See_Comment [Automated message] 789-8) The system edulio generated this result transmitted ref erence range: 3.93 - 5 .25 10*6/?L. The re ference range was not u sed to interpret this result as normal/abnor mal. HGB (test code = 14.6 g/dL 11.6-15.0 718-7) HCT (test code = 43.5 % 35.7-45.2 4544-3) MCV (test code = 90.8 fL 80.6-95.5 787-2) MCH (test code = 30.5 pg 25.9-32.8 785-6) MCHC (test code = 33.6 g/dL 31.6-35.1 786-4) RDW-SD (test code 40.5 fL 39.0-49.9 = 77520-5) RDW-CV (test code 12.2 % 12.0-15.5 = 788-0) PLT (test code = See_Comment [Automated message] 777-3) The system edulio generated this result transmitted ref erence range: 166 - 35 8 10*3/?L. The re ference range was not u sed to interpret this result as normal/abnor mal. MPV (test code = 9.8 fL 9.5-12.9 66517-7) NRBC/100 WBC (test See_Comment [Automat ed message] code = 8263196551) The syste [employer] which generated this result transmitted ref erence range: 0.0 - 10 .0 /100 WBCs. The refer ence range was not u sed to interpret this result as normal/abnor mal. NRBC x10^3 (test <0.01 See_Comment [Automated message] code = 2485801521) The syste m which generated this result transmitted ref erence range: 10*3/?L. The reference range was not used to interpr et this result as normal/abnormal . GRAN MAT (NEUT) % 61.3 % (test code = 770-8) IMM GRAN % (test 0.40 % code = 9964520892) LYMPH % (test code 27.5 % = 736-9) MONO % (test code 7.1 % = 5905-5) EOS % (test code = 2.6 % 713-8) BASO % (test code 1.1 % = 706-2) GRAN MAT 3.48 10*3/uL 1.88-7.09 x10^3(ANC) (test code = 7620876716) IMM GRAN x10^3 <0.03 0.00-0.06 (test code = 3919559908) LYMPH x10^3 (test 1.56 10*3/uL 1.32-3.29 code = 731-0) MONO x10^3 (test 0.40 10*3/uL 0.33-0.92 code = 742-7) EOS x10^3 (test 0.15 10*3/uL 0.03-0.39 code = 711-2) BASO x10^3 (test 0.06 10*3/uL 0.01-0.07 code = 704-7) [facility]ano[facility] T SPINE W/O [id number] 12:36:19 [facility] ([facility]/)Name: DAMIEN PEREIRA : [id number] Sex: FHistory: TraumaComparison studies:NoneTechnique:Axial were obtained through the thoracic and lumbar regions.Coronal and sagittal images reconstructed from the axial data.Intravenouscontrast: NoneFindings:Alignment: Normal thoracic kyphosis. Normal lumbar lordosis.. No scoliosis.Soft tissues: No abnormalities..Paraspinal muscles: Well-preserved.Spinal cord: Cannot evaluate.Vertebrae:Bones mildly demineralized but normal in height.No fractures, infection or neoplasm.Thoracic degenerative changes:Minimally degenerated discs in the midthoracic region.Patent spinal canal and foramina.Lumbar degenerative changes:None.Incidental bilateral tubal ligation clips in the pelvis.IMPRESSION: 1. No acute thoracic or lumbar abnormalities.2. Specifically, no fractures or subluxations.3. Cannot adequately evaluate the spinal cord, ligament or the vessels on thesestudies.This final report was electronically signed by Dr Tommy Escobar MD06/14/2020 12:29 PMDictated By: BELLA ESCOBARRODate: 06/14/2020 12:29CT L SPINE W/O [id number] 12:36:09 [facility] ([place]/[place])Name: DAMIEN PEREIRA : [id number] Sex: FHistory: TraumaComparison studies:NoneTechnique:Axial were obtained through the thoracic and lumbar regions.Coronal and sagittal images reconstructed from the axial data.Intravenouscontrast: NoneFindings:Alignment: Normal thoracic kyphosis. Normal lumbar lordosis.. No scoliosis.Soft tissues: No abnormalities..Paraspinal muscles: Well-preserved.Spinal cord: Cannot evaluate.Vertebrae:Bones mildly demineralized but normal in height.No fractures, infection or neoplasm.Thoracic degenerative changes:Minimally degenerated discs in the midthoracic region.Patent spinal canal and foramina.Lumbar degenerative changes:None.Incidental bilateral tubal ligation clips in the pelvis.IMPRESSION: 1. No acute thoracic or lumbar abnormalities.2. Specifically, no fractures or subluxations.3. Cannot adequately evaluate the spinal cord, ligament or the vessels on thesestudies.This final report was electronically signed by Dr Tommy Escobar MD06/14/2020 12:29 PMDictated By: CHRIS ESCOBARate: 06/14/2020 12:29CT ABDOMEN/PELVIS [id number] 00:50:57 [facility] ([facility]/[place])Name: DAMIEN PEREIRA : [id number] Sex: FEXAM: CT Abdomen and Pelvis WITH contrastINDICATION: [id number]: Abdominal painCOMPARISON: None.TECHNIQUE: Abdomen and pelvis were scanned utilizing a multidetector helicalscanner from the lung base to the pubic symphysis after administration of IVcontrast. Coronal and sagittal reformations were obtained. Routine protocol wasperformed.IV CONTRAST: 100 mL of Isovue 300ORAL CONTRAST: NoneCOMPLICATIONS: NoneFINDINGS:LINES and TUBES: None.LOWER THORAX: UnremarkableHEPATOBILIARY: No focal hepatic lesions. No biliary ductal dilation.GALLBLADDER: No radio- opaque stones or sludge. No wall thickening.SPLEEN: No splenomegaly.PANCREAS: No focal masses or ductal dilatation.ADRENALS: No adrenal nodulesKIDNEYS/URETERS: Kidneys enhance symmetrically. No hydronephrosis. No cystic orsolid mass lesions. No stones.GI TRACT: No abnormal distention, wall thickening, or evidence of bowelobstruction. The cecum is located in the midline lower abdomen. Appendix isnot clearly identified. There is however no fat stranding or adenopathy tosuggest appendicitis.PELVIC ORGANS/BLADDER: Tubal ligation clips.LYMPH NODES: No lymphadenopathy.VESSELS: Unremarkable.PERITONEUM / RETROPERITONEUM: No free air or fluid.BONES: Unremarkable.SOFT TISSUES: Unremarkable.IMPRESSION:No acute abdominopelvic process.This final report was electronically signed by Dr Danay Ly 04/16/2020 12:44AMDictated By: DANAY LYDate: 04/16/2020 00:44URINALYSIS WITH [id number] 00:22:00 Test Item Value Reference Range Interpretation Comments Color (test code = UCOLR) Yellow Clarity (test code = UCLAR) Clear Glucose (test code = UGLUC) NEGATIVE NEGATIVE N Bilirubin (test code = UBILI) NEGATIVE NEGATIVE N Ketones (test code = UKET) NEGATIVE NEGATIVE N Specific Emerson (test code = 1.020 1.005-1.030 A USPGR) Blood (test code = UBLD) NEGATIVE NEGATIVE N PH (test code = UPH) 6.0 4.5-8.0 A Protein (test code = UPROT) NEGATIVE NEGATIVE N Urobilinogen (test code = U UROB) 0.2 >0.2 N Nitrite (test code = UNITR) NEGATIVE NEGATIVE N Leukocyte Esterase (test code = SMALL NEGATIVE A ULEUK) WBC (test code = WBCUR) 10-15 0-5 A RBC (test code = RBCUR) None Seen 0-5 A Epithial Cells (test code = U EPI) 3-5 0-10 A Mucous (test code = UMUC) Trace None Seen A Bacteria (test code = UBACT) 1+ None Seen,Trace A TEST, Urine [id number] 00:14:00 Test Item Value Reference Range Interpretation Comments (Urine) (test code = Negative PREGU) TEST, Serum [id number] 22:57:00 Test Item Value Reference Range Interpretation Comments (Serum) (test code = Negative Negative N PREGS) [id number] 21:25:00 Test Item Value Reference Range Interpretation [...] 4 - SerumAlbu min)] EGFR if >60 Kenyan (test code mL/min/1.73m\\ = EGFRAA) S\\2 EGFR if Non- >60 Estimate d Glomerular Kenyan (test code mL/min/1.73m\\ Filtrat ion Rate (eGFR) [...] and management of c hronic kidney failure. [id number] 21:25:00 Test Item Value Reference Range Interpretation Comments Lipase (test code = LIPA) 163 U/L 8-223 CBC WITH AUTO [id number] 21:04:00 Test Item Value Reference Range Interpretation [...] code = 0.3 % 0.0-0.4 IG%) HISTOLOGY [id number] 14:41:[address] [place] [id number]: [phone] EKRJ #: [id number] Pilot Instructor: Sridhar Quinn M.D.Surgical Pathology Consultation ReportPatient Name: DAMIEN PEREIRA Case #: [id number] Med. Rec. #:[id number]: TAMELA-TAMELA Surgery Date: 08/28/2019 : 1990 (Age: 28) Received: 08/28/2019 Gender: F Copy to : Reported: 08/28/2019Physician(s): Lorna Pizarroaee Specimen(s) ReceivedA: Placenta and cord Final Pathologic [...] evidence of inflammation. Billing Fee Code(s): A; 03731SMP WITH AUTO DIFF 2019-08-26 09:04:00 Test Item [...] [id number] on 08/26/2019 09:04 DRUG SCREEN [id number] 11:36:00 Test Item Value Reference Range Interpretation Comments PH (test code = 7.0 UPH) Specific Emerson 1.015 (test code = USPGR) FT (test [...] of Ab use ran on the Siemens [place] analyzer listed there in: [place] < [...] Negative THC) (qualifier value) HIV 4th GENERATION, [id number] 16:25:00 Test Item Value Reference Range Interpretation [...] ctive. (Con firmatory tests suggested ) SYPHILIS, [id number] 16:24:00 Test Item Value Reference Range Interpretation [...] philis T. pallidum ant ibodies. URINALYSIS WITHOUT [id number] 15:32:00 Test Item Value Reference Range Interpretation Comments Color (test code = UCOLR) Yellow Clarity (test code = UCLAR) Hazy Glucose (test code = UGLUC) NEGATIVE NEGATIVE N Bilirubin (test code = UBILI) NEGATIVE NEGATIVE N Ketones (test code = UKET) NEGATIVE NEGATIVE N Specific Emerson (test code = 1.015 1.005-1.030 A USPGR) Blood (test code = UBLD) Trace-Intact NEGATIVE A PH (test code = UPH) 6.5 4.5-8.0 A Protein (test code = UPROT) NEGATIVE NEGATIVE N Urobilinogen (test code = U 0.2 >0.2 N UROB) Nitrite (test code = UNITR) NEGATIVE NEGATIVE N Leukocyte Esterase (test code = Small NEGATIVE A ULEUK) CROSSMATCH x 15:21:00 Test Item Value Reference Range Interpretation Comments Crossmatch (test code = Completed: Compatible XMATCH) TYPE & [id number] 15:21:00 Test Item Value Reference Range Interpretation Comments ABO Blood Type (test code = ABO) A Rh (test code = RH) Positive Positive N Antibody Screen (test code = ABSCR) Negative Negative N CBC (HEMOGRAM ONLY)2019-08-24 14:05:00 Test Item Value [...] THE RE PORT. US VEINS LEG UNIL [id number] 16:51:09Right lower extremity venous Doppler ultrasound:Ordering Physician: [...] NEAL HERNANDEZDate: 08/22/2019 16:44 CBC WITH AUTO [id number] 05:49:00 Test Item Value Reference Range Interpretation [...] THE RBC HISTOGRAM. IN THIS CASE, A MA VA REVIEW OF THE S LIDE WILL BE [...] A value of 83 was entered by [employer] on 04/25/2019 0 5:49 Lymphocytes (test 7 % 13-42 L No previou s value code = LYMPH) was reported. A value of 7 was entered by [employer] on 04/25/2019 0 5:49 Monocytes (test code 10 % 4-14 No prev ious value = MONOS) was reported. A value of 10 was entered by [employer] on 04/25/2019 0 5:49 FLU [id number] 22:21:00 Test Item Value Reference Range Interpretation [...] avai lable upon request. ldh STREP A [id number] 22:09:00 Test Item Value Reference Range Interpretation Comments Strep A Screen Positive Negative A TESTING IS PE RFORMED ON THE (test code = SAS) [employer] SOF IA ANALYZER WHICH EMPLOYS IMMUNOF LUORESCENCE TECHNOLOGY TO D ETECT GROUP A STREPTOCOCCAL A NTIGENS FROM THROAT SWABS OF SYMPTOMATIC PATIENTS. ALL NEGATIVE RESULTS ARE CON FIRMED BY BACTERIAL CULTU RE BECAUSE NEGATIVE RESULT S DO NOT PRECLUDE GROUP A STREP INFECTION AND S HOULD NOT BE USED THE KWESI E BASIS FOR TREATMENT. THI S TEST IS INTENDED FOR MA OFESSIONAL AND LABORATORY USE AN AID IN THE DIAGNOSI S OF GROUP A STREPTOCOCCAL I NFECTION. [id number] 21:38:00 Test Item Value Reference Range Interpretation [...] 4 - SerumAlbu min)] EGFR if >60 Kenyan (test code mL/min/1.73m\\ = EGFRAA) S\\2 EGFR if Non- >60 Estimate d Glomerular Kenyan (test code mL/min/1.73m\\ Filtrat ion Rate (eGFR) [...] PMDictated By: NEAL HERNANDEZDate: 02/08/2019 15:42US INTRAVAGINAL [id number] 00:03:13TECHNIQUE:Transvaginal and transabdominal ultrasound imaging of the pelvis was performed.Transvaginal images were medically indicated to better evaluate the fetus.Color Doppler evaluation was utilized to supplement the evaluation.HISTORY: Lower abdominal pain, last menstrual period November 25, 2018COMPARISON: None available.DISCUSSION:UTERUS:Cervix: 3.1 cmEndometrium:Intrauterine .Mean sac diameter: 0.97 sieve maker subtle yolk sac is visible.No pole or [...] Dr Yash Vidales DO 01/02/201911:56 PMDictated By: Arely VIDALESte: 01/02/2019 23:56BETA HCG II 2019-01-02 22:09:00 Test Item Value Reference Range Interpretation Comments BHCG II (test 7098.0 mIU/L 0.0-4.8 H A NEW EXPANDED METHOD FOR code = BHCGII) BHCG WILL BE INTRODUCED ON JANUARY 28. THE DYNAMIC RANGE O F THE TEST HAS BEEN INCREA SED ALLOWING FOR FE WER DILUTUIONS, AND THE GESTATION WEEKS HAVE BEEN AGGREGATED TO A LLOW FOR EASE OF INTREPR ETATION. PLEASE REFER TO THE INTERPRETATION TABLE BELOW. Beta hC G levels in non- individuals = < 4.83 IU/L GESTAT IONAL AGE: 1-10 weeks 63.70 - 418661.00 IU/ L 11-15 weeks 08477. 00 - 232718.00 IU/L 16-22 weeks 9383. 80 - 31438.00 IU/L 23-40 weeks 1737. 20 - 31546.00 IU/L Detection of very Low Lev els of hCG does not exclud e . Repe at testing after 48 Hrs. i s recommended. TH IS ASSAY SHOULD NOT BE U SED TO DIAGNOSE ANY CO NDITION UNRELATED TO MA EGNANCY. [id number] 21:45:00 Test Item Value Reference Range Interpretation [...] 4 - SerumAlbu min)] EGFR if >60 Kenyan (test code mL/min/1.73m\\ = EGFRAA) S\\2 EGFR if Non- >60 Estimate d Glomerular Kenyan (test code mL/min/1.73m\\ Filtrat ion Rate (eGFR) [...] c hronic kidney failure. CBC WITH AUTO [id number] 21:25:00 Test Item Value Reference Range Interpretation [...] 0.5 % 0.0-0.4 H IG%) URINALYSIS WITH [id number] 20:05:00 Test Item Value Reference Range Interpretation Comments Color (test code = UCOLR) YELLOW Clarity (test code = UCLAR) CLEAR Glucose (test code = UGLUC) NEGATIVE NEGATIVE N Bilirubin (test code = UBILI) NEGATIVE NEGATIVE N Ketones (test code = UKET) NEGATIVE NEGATIVE N Specific Emerson (test code = USPGR) >=1.030 1.005-1.030 A [...] UBACT) 1+ None Seen,Trace A TEST, Urine [id number] 20:02:00 Test Item Value Reference Range Interpretation Comments (Urine) (test code = Positive PREGU) If a specimen is collected by a nurse, then you MUST fill out the Collected and Collected By hart
--- NOTE | 2021-02-19 11:24 | ER ---
Nurse's Notes [facility] Name: Thania Gastelum Age: 30 yrs Sex: Female : 1990 Arrival Date: 02/19/2021 Time: 10:46 Bed Waiting Private MD: Diagnosis: Central corneal ulcer, right eye Presentation: 02/19 11:08 Chief complaint: Patient states: "I went to the doctor a week or two ago and he said I ss have shingles in my eye. I took the medication they gave me, but it's getting worse.". Coronavirus screen: Vaccine status:. Ebola Screen: Patient denies exposure to infectious person. Patient denies travel to an Ebola-affected area in the 21 days before illness onset. Initial Sepsis Screen: Does the patient meet any 2 criteria? No. Patient's initial sepsis screen is negative. Does the patient have a suspected source of infection? No. Patient's initial sepsis screen is negative. Risk Assessment: Do you want to hurt yourself or someone else? Patient reports no desire to harm self or others. Onset of symptoms was February 05, 2021. 11:08 Method Of Arrival: Ambulatory ss 11:08 Acuity: SALLIE 4 ss TILE FITTER: 11:09 LMP 02/13/2021 Historical: - Allergies: 11:09 No Known Allergies; ss - Home Meds: 11:09 None [Active]; ss - PMHx: 11:09 Anxiety; Migraines; ss - Immunization history:: Client reports having NOT received the Covid vaccine. - Social history:: Smoking status: Patient denies any tobacco usage or history of. - Family history:: not pertinent. - Hospitalizations: : No recent hospitalization is reported. Vital Signs: 11:09 BP 157 / 96; Pulse 94; Resp 16; Temp 98.4(TE); Pulse Ox 96% on R/A; Weight 81.65 kg; ss Height 5 ft. 11 in. (180.34 cm); Pain 8/10; 11:11 Pulse 92; Pulse Ox 99% on R/A; ss 11:09 Body Mass Index 25.10 (81.65 kg, 180.34 cm) ED Course: 10:46 Patient arrived in ED. ds1 11:07 Rachel Rodriguez FNP-C is PHCP. kb 11:07 Monty Langston MD is Attending Physician. kb 11:09 Triage completed. ss 11:09 Arm band placed on right wrist. ss 11:17 Rachel Rodriguez FNP-C is PHCP. kb 11:23 Natalya Beltre MD is Referral Physician. rn 11:34 Ayesha Ludwig RN is Primary Nurse. ss 11:35 No provider procedures requiring assistance completed. Patient did not have IV access ss during this emergency room visit. Administered Medications: No medications were administered Outcome: 11:24 Discharge ordered by . rn 11:35 Discharged to home ambulatory. ss 11:35 Condition: good 11:35 Discharge instructions given to patient, Instructed on discharge instructions, follow up and referral plans. medication usage, Demonstrated understanding of instructions, follow-up care, medications, Prescriptions given X 1. 11:35 Patient left the ED. ss Signatures: Rachel Rodriguez FNP-C WARP TESTER-Familia Susie Shook ds1 Monty Langston MD MD rn Smirch, Shelby, RN RN ss
--- NOTE | 2021-02-19 11:24 | EDPHYS ---
Physician Documentation [facility] Name: Thania Gastelum Age: 30 yrs Sex: Female : 1990 Arrival Date: 02/19/2021 Time: 10:46 Bed Waiting Private MD: ED Physician Monty Langston HPI: 02/19 11:19 This 30 yrs old Female presents to ER via Ambulatory with complaints of Eye rn Swelling and pain. 11:19 The patient is experiencing pain, redness, tearing, The patient sustained None. to the rn right eye. 11:19 Onset: The symptoms/episode began/occurred 2 week(s) ago. Duration: the symptoms are rn continuous. Aggravated by rubbing, Alleviated by nothing. Associated signs and symptoms: Pertinent negatives: fever, headache. Severity of symptoms: At their worst the symptoms were moderate in the emergency department the symptoms are unchanged. The patient has experienced a previous episode. The patient has been recently seen at the [facility] Emergency Department. Patient reports right eye pain and swelling with tearing. Onset was almost 2 weeks ago. Seen by me. I sent her home with acyclovir, Zithromax, antibiotic eyedrops. Patient was to follow-up with ophthalmology which she has not. Now returns for symptoms not improving and worsening vision. Reports pneumonia improved but eye did not. POST ACUTE CARE NURSE: 11:09 LMP 02/13/2021 ss Historical: - Allergies: 11:09 No Known Allergies; ss - Home Meds: 11:09 None [Active]; ss - PMHx: 11:09 Anxiety; Migraines; ss - Immunization history:: Client reports having NOT received the Covid vaccine. - Social history:: Smoking status: Patient denies any tobacco usage or history of. - Family history:: not pertinent. - Hospitalizations: : No recent hospitalization is reported. ROS: 11:19 Constitutional: Negative for fever, chills, and weight loss, Eyes: Positive for right rn eye pain redness and discharge Cardiovascular: Negative for chest pain, palpitations, and edema, Respiratory: Negative for shortness of breath, cough, wheezing, and pleuritic chest pain, Abdomen/GI: Negative for abdominal pain, nausea, vomiting, diarrhea, and constipation, Skin: Negative for injury, rash, and discoloration, Neuro: Negative for headache, weakness, numbness, tingling, and seizure. Exam: 11:19 Constitutional: This is a well developed, well nourished patient who is awake, alert, rn and in no acute distress. Head/Face: Normocephalic, atraumatic. Eyes: Pupils equal round and reactive to light, extra-ocular motions intact. Enlargement of corneal ulcer that was seen last time. No dendritic lesions seen. No hyphema. No hypopyon Vital Signs: 11:09 BP 157 / 96; Pulse 94; Resp 16; Temp 98.4(TE); Pulse Ox 96% on R/A; Weight 81.65 kg; ss Height 5 ft. 11 in. (180.34 cm); Pain 8/10; 11:11 Pulse 92; Pulse Ox 99% on R/A; ss 11:09 Body Mass Index 25.10 (81.65 kg, 180.34 cm) ss MDM: 11:07 Patient medically screened. kb 11:19 Differential diagnosis: Corneal ulcer of right eye. Data reviewed: vital signs, nurses rn notes, and as a result, I will discharge patient. Counseling: I had a detailed discussion with the patient and/or guardian regarding: the historical points, exam findings, and any diagnostic results supporting the discharge/admit diagnosis, the need for outpatient follow up, to return to the emergency department if symptoms worsen or persist or if there are any questions or concerns that arise at home. Special discussion: I discussed with the patient/guardian in detail that at this point there is no indication for admission to the hospital. It is understood, however, that if the symptoms persist or worsen the patient needs to return immediately for re-evaluation. Based on the history and exam findings, there is no indication for further emergent testing or inpatient evaluation. I discussed with the patient/guardian the need to see the opthamologist for further evaluation of the symptoms. ED course: Had discussion with patient, told her we have tried antibiotics systemically, antibiotic drops, as well as antivirals. Needs ophthalmology for further evaluation and recommendations. Recommend discharge and immediate follow-up with ophthalmology today.. Administered Medications: No medications were administered Disposition Summary: 02/19/21 11:24 Discharge Ordered Location: Home rn Problem: an ongoing problem rn Symptoms: are unchanged rn Condition: Stable rn Diagnosis - Central corneal ulcer, right eye rn Followup: rn - With: Natalya Beltre MD - When: Upon discharge from the Emergency Department - Reason: Recheck today's complaints, Re-evaluation by your physician Discharge Instructions: - Discharge Summary Sheet rn - Corneal Ulcer rn Forms: - Medication Reconciliation Form rn - Thank You Letter rn - Antibiotic rn nursery - Prescription Opioid Use rn Prescriptions: - Gentamicin 0.3 % Ophthalmic Drops - instill 2 drops by OPHTHALMIC route every 4 hours for 7 days; 1 bottle; rn Refills: 0, Product Selection Permitted Signatures: Rachel Rodriguez FNP-C FNP-Ckb Nieto, Roman, MD MD rn Smirch, Shelby, RN RN ss
[2021-02-19 11:41] VITALS: BP 157/96; TEMP 98.4
[2021-02-19 11:43] VITALS: O2SAT 99
== END 2021-02-19 11:35 | disposition home or self-care (01) ==
LOC: ER 10:44
DX: H16.011 Central corneal ulcer, right eye (principal)
CPT/HCPCS: 99282